=== PATIENT | male | born 1960 | race Caucasian/White ===

== ENCOUNTER 2016-12-31 03:30 | Emergency (ER) | payer OTHER, MEDICARE ==
[~2016-12-31] VITALS: Ht 167.6 cm; Wt 66.2 kg
[~2016-12-31 03:30] MED LIST: ARIP20TA16 PO; ATA25 PO; BENZ2TAB27 PO; CEPH250C16 PO; CLON1TAB PO; DIT5 PO; DOCU100C14 PO; ESCI10TA PO; IBUP-2213 PO; KEP500 PO; METO-460 PO; OLAN10TA PO; PANT40EC PO; PROP10TA28 PO; QUET100T PO; RANI-287 PO
[2016-12-31 03:40] VITALS: BP 144/92
--- NOTE | 2016-12-31 03:44 | NUR ---
PT TAKEN TO BED 3
--- NOTE | 2016-12-31 03:44 | NUR ---
56 Y/O M BIB FRONT DESK W/C/O LACERATION TO UNDERKNEE CHIN S/P FALL X 30 MIN AGO. CAREGIVER DENIES ANY LOC. ER MD AT BEDSIDE.
--- NOTE | 2016-12-31 03:44 | NUR ---
Dr. Gilmore evaluating patient at bedside.
[2016-12-31 04:14] VITALS: BP 144/92
--- NOTE | 2016-12-31 04:14 | NUR ---
Patient discharged with v/s stable. Written and verbal after care instructions given and explained TO CAREGIVER AND PT. CAREGIVER VERBALIZED UNDERSTANDED INSTRUCTIONS. Ambulatory with steady gait. All questions addressed prior to discharge. Advised to follow up with PMD OR RETURN TO ER IF CONDITION WORSENS.
== END 2016-12-31 04:14 | disposition home or self-care (01) ==
LOC: MED 03:30
DX: S01.81XA Laceration without foreign body of other part of head, initial encounter (principal); J45.909 Unspecified asthma, uncomplicated; W06.XXXA Fall from bed, initial encounter; Y93.89 Activity, other specified; Y92.89 Other specified places as the place of occurrence of the external cause; Y99.8 Other external cause status
CPT/HCPCS: 90471; 90715; 99283

== ENCOUNTER 2017-09-02 11:54 | Inpatient (IN) | payer OTHER, MEDICARE ==
[~2017-09-02] VITALS: Ht 165.1 cm; Wt 68.9 kg
[~2017-09-02 11:54] MED LIST changes: +ARIP20TA1 PO; -ARIP20TA16 PO; -DOCU100C14 PO; +[UNRECOGNIZED DRUG - CODE] PO
[2017-09-02 12:03] VITALS: BP 117/74
--- NOTE | 2017-09-02 12:04 | NUR ---
PT TAKEN TO BED 1.
--- NOTE | 2017-09-02 12:29 | NUR ---
PATIENT PRESENTS TO ED WITH ALOC. PT CAREGIVER STATES PATIENT HAD ADJUSTMENT OF SEIZURE MEDICATIONS AT THIS START OF THE MONTH AND PT BECAME INCREASINGLY ALTERED FROM BASELINE. HX, NONVERBAL, AUTISM. DENIES N/V/D; SKIN IS PINK/WARM/DRY; AAOX4 WITH EVEN AND STEADY GAIT; LUNGS CLEAR BL; HR EVEN AND REGULAR; PT DENIES ANY FEVER, CP, SOB, OR COUGH AT THIS TIME; VSS; PATIENT POSITIONED FOR COMFORT; HOB ELEVATED; BEDRAILS UP X2; BED DOWN. ER MD MADE AWARE OF PT STATUS.
--- NOTE | 2017-09-02 12:37 | NUR ---
Pt moved to bed 4.
[2017-09-02 13:02] LABS: HEMATOCRIT 44.7 % (36-52); HEMOGLOBIN 14.9 g/dL (12.0-18.0); MEAN CORPUSCULAR HEMOGLOBIN 31 pg (27-31); MEAN CORPUSCULAR HGB CONC 34 g/dL (33-37); MEAN CORPUSCULAR VOLUME 92 fL (80-94); PLATELET COUNT (AUTO) 190 K/uL (140-450); RED BLOOD CELL COUNT(AUTO) 4.85 MIL/uL (4.20-6.10); RED CELL DISTRIBUTION WIDTH 13.1 % (11.6-13.7); WHITE BLOOD COUNT (AUTO) 12.1 K/uL (4.8-10.8)
[2017-09-02 13:14] LABS: PROTHROMBIN TIME 11.8 secs (10.8-13.4)
[2017-09-02 13:15] LABS: ANION GAP 12.4 (8-16); CARBON DIOXIDE 30.5 mmol/L (21-32); CREATININE 1.3 mg/dL (0.7-1.3); POTASSIUM 3.9 mmol/L (3.5-5.1)
[2017-09-02 13:22] LABS: ALBUMIN 3.5 g/dL (3.4-5.0); TOTAL BILIRUBIN 0.5 mg/dL (0.0-1.0)
[2017-09-02 13:33] LABS: LYMPHOCYTES % (MANUAL) 14 % (20-46); MONOCYTES % (MANUAL) 5 % (5-12)
[2017-09-02] MEDS: NACL 0.9% 1,000 ML IV SCH ×2 (13:52→22:40)
[2017-09-02] MEDS ORDERED: ONDANSETRON 4 MG/2 ML VIAL IM/IVP PRN (13:55)
[2017-09-02] MEDS ORDERED: DOCUSATE SODIUM 100 MG GELCAP PO PRN ×2 (13:55→14:00)
[2017-09-02] MEDS ORDERED: MORPHINE SULFATE 2 MG/ML SYR IVP PRN (13:55)
[2017-09-02] MEDS ORDERED: ACETAMINOPHEN 325 MG TAB PO PRN (13:55)
[2017-09-02] MEDS ORDERED: HYDROcodone/APAP 7.5/325 MG 1 TAB PO PRN (13:55)
[2017-09-02] MEDS ORDERED: clonazePAM 0.5 MG TAB PO PRN (14:00)
[2017-09-02] MEDS ORDERED: IBUPROFEN 600 MG TAB PO PRN (14:00)
--- NOTE | 2017-09-02 14:15 | NUR ---
Pt report given to YANIQUE RN AT PT BEDSIDE. Transfer of care at this time.
[2017-09-02] MEDS ORDERED: ALBUTEROL SULFATE/IPRATROPIU 3 ML SOL IH PRN (14:35)
--- NOTE | 2017-09-02 14:50 | NUR ---
PATIENT TRANSFERRED TO [facility].
--- NOTE | 2017-09-02 15:00 | NUR ---
1455 RECEIVED A CALL FROM ITZ AT [facility] [phone] X [phone] AND FAX [phone] AND SHE REQUESTED THAT ANY CLINICAL DOCUMENTATION AVAILABLE BE FAXED TO HER. INFORMED HER THAT PT HAD JUST BEEN ADMITTED FROM ED AND THAT RESIDENT DOCTOR ASSIGNED COULD BE CONTACTED FOR FURTHER UPDATE AND PROVIDED HER WITH RESIDENT DOCTORS PHONE NUMBER.
--- NOTE | 2017-09-02 15:10 | NUR ---
PT ARRIVED ON UNIT VIA GURNEY. PT AWAKE BUT APHASIC. TRACKS WITH EYES. NO ACUTE DISTRESS NOTED. NO FACIAL GRIMACING NOTED. FLACC 0. PATIENT WALKED FROM [facility] TO BED WITH ASSISTANCE X 2. ABLE TO WALK BUT GAIT UNSTEADY. DOES NOT FOLLOW COMMANDS WELL. REQUIRES GUIDED ASSISTANCE. PT WITH IV TO RIGHT AC 20G HEP LOCKED. SEIZURE AND FALL PRECAUTIONS IMPLEMENTED. URINE AND MRSA SPECIMEN COLLECTED AND SENT TO LAB. PATIENT ORIENTED TO ROOM AND FLOOR. PLAN OF CARE REVIEWED. CALL PLAZA WITHIN REACH. SIDE RAILS UP. BED LOCKED. BED IN LOW POSITION. WILL CONT TO MONITOR.
[2017-09-02 15:15] VITALS: BP 128/89
[2017-09-02 16:01] LABS: APPEARANCE,URINE CLEAR (CLEAR); BILIRUBIN,URINE NEGATIVE (NEGATIVE); BLOOD, URINE NEGATIVE (NEGATIVE); COLOR,URINE YELLOW (YELLOW); LEUKOCYTE ESTERASE ,URINE NEGATIVE (NEGATIVE); NITRITE, URINE NEGATIVE (NEGATIVE); UGLUCOSE NEGATIVE (NEGATIVE)
--- NOTE | 2017-09-02 16:05 | NUR ---
PATIENT OUT OF ROOM AT THIS TIME IN RADIOLOGY DISPENSING OPTICIAN APPRENTICE TO ATTEMPT ASSESSMENT AND INCENTIVE SPIROMETRY THERAPY AT A LATER TIME
[2017-09-02 16:11] LABS: BARBITURATE, URINE POS. ng/ml (NEG <=200); BENZODIAZEPINE, URINE NEG. ng/mL (NEG <=200); CANNABINOID, URINE NEG. ng/mL (NEG <=50); COCAINE, URINE NEG. ng/mL (NEG <=300); OPIATE, URINE NEG. ng/mL (NEG <=2000); PHENCYCLIDINE SCREEN,URINE NEG. ng/mL (NEG <=25)
[2017-09-02 16:23] LABS: CHOL/HDL RATIO 2.4 (1-4.5); FREE T4 (FREE THYROXINE) 0.65 ng/dL (0.76-1.46); PHOSPHORUS 3.2 mg/dL (2.5-4.9); THYROID STIMULATING HORMONE 0.93 uIU/mL (0.34-3.74)
[2017-09-02] MEDS: METOCLOPRAMIDE 10 MG TAB PO SCH (16:39)
[2017-09-02] MEDS: LACTOBACILLUS RHAMNOSUS GG 1 EACH CAP PO SCH (16:40)
[2017-09-02] MEDS: hydrOXYzine HCL 25 MG TAB PO SCH (16:40)
--- NOTE | 2017-09-02 17:02 | NUR ---
PT REPEATEDLY ATTEMPTS TO GET UP OUT OF BED, PT SLIGHTLY UNSTEADY ON HIS FEET, WALKS AROUND THE ROOM WITH ASSIST, CHARGE NURSE NOTIFIED OF NEED FOR 1:1 SITTER FOR SAFETY.
--- NOTE | 2017-09-02 17:10 | NUR ---
PATIENT UNABLE TO PERFORM INCENTIVE SPIROMETRY THERAPY DOES NOT FOLLOW COMMANDS HX: AUTISM
--- NOTE | 2017-09-02 17:20 | NUR ---
DR GARCIA AT BEDSIDE FOR EVAL.
[2017-09-02] MEDS: PIPER/TAZO 2.25GM/D5W PREMIX 50 ML IV SCH (18:05)
[2017-09-02] MEDS: ALBUTEROL SULFATE/IPRATROPIU 3 ML SOL IH SCH (19:00)
--- NOTE | 2017-09-02 19:20 | NUR ---
GAVE REPORT TO SOCIOLOGY TEACHER NURSE FOR CONTINUITY OF CARE.
--- NOTE | 2017-09-02 19:21 | NUR ---
PATIENT REPORT RECEIVED FROM MORNING NURSE AT BEDSIDE. PATIENT IS RESTING COMFORTABLY IN BED, BUT EASILY AROUSABLE. NO SIGNS AND SYMPTOMS OF DISTRESS NOTED. BREATHING EVEN AND UNLABORED. PATIENT IS APHASIC. IV SITE NOTED ON RIGHT FOREARM. IVF INFUSING WELL. BED IN LOWEST POSITION, SIDE RAILS UP, SAFETY AND SEIZURE PRECAUTIONS IN PLACE. WILL CONTINUE TO MONITOR. 1:1 SITTER PRESENT AT BEDSIDE.
[2017-09-02 20:00] VITALS: BP 112/79
[2017-09-02] MEDS ORDERED: OLANZapine 5 MG TAB PO SCH (21:00)
[2017-09-02] MEDS ORDERED: NON-FORMULARY ITEM (Ranitidine Hcl* (Zantac*) 150 MG) PO SCH (21:00)
[2017-09-02] MEDS ORDERED: ARIPiprazole 10 MG TAB PO SCH (21:00)
[2017-09-02] MEDS ORDERED: levETIRAcetam 500 MG TAB PO SCH ×2 (21:00)
[2017-09-02] MEDS ORDERED: QUEtiapine FUMARATE 100 MG TAB PO SCH (21:00)
[2017-09-02] MEDS: PROPRANOLOL 20 MG TAB PO SCH (21:01)
[2017-09-02] MEDS: lamoTRIgine 25 MG TAB PO SCH (21:02)
[2017-09-02] MEDS: BENZTROPINE 1 MG TAB PO SCH (21:03)
--- NOTE | 2017-09-02 21:30 | NUR ---
EDUCATION ON MEDICATIONS GIVEN. PATIENT APHASIC. ADMINISTERED ALL MEDICATIONS ORDERED. PATIENT TOLERATED WELL. WILL CONTINUE TO MONITOR.
[2017-09-03] VITALS: BP 115/83
--- NOTE | 2017-09-03 | NUR ---
CHECKED ON PATIENT PATIENT IS ASLEEP. NO SIGNS AND SYMPTOMS OF DISTRESS NOTED. BREATHING EVEN AND UNLABORED. BED IN LOWEST POSITION, SIDE RAILS UP AND CALL LIGHT WITHIN REACH. WILL CONTINUE TO MONITOR.
[2017-09-03] MEDS: PIPER/TAZO 2.25GM/D5W PREMIX 50 ML IV SCH ×3 (00:21→11:24)
--- NOTE | 2017-09-03 02:30 | NUR ---
ASSISTED PATIENT TO THE RESTROOM. PATIENT VOIDED. ESCORTED PATIENT BACK TO BED. 1:1 SITTER STILL PRESENT IN ROOM. WILL CONTINUE TO MONITOR.
[2017-09-03 04:00] VITALS: BP 128/85
[2017-09-03] MEDS ORDERED: PANTOPRAZOLE 40 MG TABEC PO SCH (06:30)
[2017-09-03] MEDS: METOCLOPRAMIDE 10 MG TAB PO SCH ×2 (06:40→11:24)
[2017-09-03] MEDS: NACL 0.9% 1,000 ML IV SCH ×2 (06:44→14:34)
[2017-09-03] MEDS: ALBUTEROL SULFATE/IPRATROPIU 3 ML SOL IH SCH ×2 (06:49→13:14)
[2017-09-03] MEDS ORDERED: BISACODYL 10 MG SUPP RC SCH (07:00)
--- NOTE | 2017-09-03 07:25 | NUR ---
PATIENT REPORT GIVEN TO MORNING NURSE AT BEDSIDE. PATIENT IS IN STABLE CONDITION
--- NOTE | 2017-09-03 07:26 | NUR ---
ENDORSEMENT RECEIVED FROM MOLECULAR BIOLOGY SCIENTIST NURSE. PATIENT IS SLEEPING COMFORTABLY. RESPIRATION EVEN, UNLABOR. SKIN DRY AND WARM. FLACC 0. NO DISTRESS NOTED AT THIS TIME. IV PATENT AND INTACT. BED AT LOW POSITION. FALL PRECAUTION IS APPLIED WITH 1:1 SITTER. CALL LIGHT WITHIN REACH
[2017-09-03 08:00] VITALS: BP 114/73
[2017-09-03] MEDS ORDERED: OXYBUTYNIN 5 MG TAB PO SCH (09:00)
[2017-09-03] MEDS ORDERED: levETIRAcetam 500 MG TAB PO SCH (09:00)
[2017-09-03] MEDS ORDERED: ESCITALOPRAM 20 MG TAB PO SCH (09:00)
[2017-09-03 09:11] LABS: LACTATE DEHYDROGENASE 198 IU/L (121-224)
--- NOTE | 2017-09-03 09:12 | NUR ---
PATIENT HAS BEEN SCREENED AND CATEGORIZED MODERATE NUTRITION RISK. PATIENT WILL BE SEEN WITHIN 3-5 DAYS OF ADMISSION. 09/04/17-09/06/[address]
[2017-09-03] MEDS: BENZTROPINE 1 MG TAB PO SCH (09:14)
[2017-09-03] MEDS: LACTOBACILLUS RHAMNOSUS GG 1 EACH CAP PO SCH (09:15)
[2017-09-03] MEDS: PROPRANOLOL 20 MG TAB PO SCH (09:16)
[2017-09-03] MEDS: lamoTRIgine 25 MG TAB PO SCH (09:16)
[2017-09-03] MEDS: hydrOXYzine HCL 25 MG TAB PO SCH ×2 (09:17→13:35)
[2017-09-03 10:03] LABS: BASOPHILS # (AUTO) 0.2 K/uL (0.00-0.22); EOSINOPHILS # (AUTO) 0.1 K/uL (0-0.4); EOSINOPHILS % (AUTO) 1.1 % (0.0-4.0); HEMATOCRIT 49.5 % (36-52); HEMOGLOBIN 16.2 g/dL (12.0-18.0); LYMPHOCYTES # (AUTO) 1.6 K/uL (2.0-11.5); LYMPHOCYTES % (AUTO) 19.1 % (20.5-51.1); MEAN CORPUSCULAR HEMOGLOBIN 31 pg (27-31); MEAN CORPUSCULAR HGB CONC 33 g/dL (33-37); MEAN CORPUSCULAR VOLUME 94 fL (80-94); MONOCYTES # (AUTO) 0.7 K/uL (0.8-1.0); MONOCYTES % (AUTO) 8.7 % (1.7-9.3); NEUTROPHILS # (AUTO) 5.6 K/uL (1.8-7.7); NEUTROPHILS % (AUTO) 68.1 % (42.2-75.2); PLATELET COUNT (AUTO) 208 K/uL (140-450); RED BLOOD CELL COUNT(AUTO) 5.27 MIL/uL (4.20-6.10); WHITE BLOOD COUNT (AUTO) 8.2 K/uL (4.8-10.8)
[2017-09-03 10:18] LABS: ANION GAP 11.4 (8-16); CARBON DIOXIDE 29.8 mmol/L (21-32); POTASSIUM 4.2 mmol/L (3.5-5.1)
--- NOTE | 2017-09-03 10:28 | NUR ---
PATIENT TRIED TO GET OUT OF BED ON HIS OWN, PULLED OUT HIS ID BAND, AND TRIED TO PULL OUT HIS IV LINE. MITTENS WERE APPLIED ON BOTH HAND. WILL CONTINUE TO MONITOR.
--- NOTE | 2017-09-03 11:00 | NUR ---
I contacted Patient's board and care administrative care provider Maryana Jamil to discuss, confirm and coordinate for patient's discharge. Per Mrs. Jamil Patient is receiving [facility], with Baggage Checker Jayesh Prasad [phone]. Mrs. Jamil Stated that patient has been under their care for about 15 years. Patient has no Advance directive and person to notify and can make decisions for patient's is his mother Patricia Jones even thought [facility] still involved and provides him with services. Per Mrs. Jamil Patient has no issues getting his medications and is in compliance with his treatment, has Dr. Amari Jacob as his health care provider. Patient has no special equipment at home and no need for O2. Patient can return back to facility when stable and ready for discharge. I thank Mrs. Jamil for her information and discuss patient's possible D/C today. She agreed and stated able to coordinate his discharge but unable to berry picker patient until after 15:00. However; Mrs. Jamil also stated that patient's mother was in her way to see patient and she can coordinate with his mother Mrs. Patricia Jones and have her berry picker patient and transport him back to the board and care facility since, she is coming already to [facility]. Mrs. Jamil stated that she will be contacting Mrs. Patricia Jones, talk to her and will be calling me back with patient berry picker time. I agreed and ended call. Custom Motorcycle Painter and Dog Day Care Attendant will follow up as needed.
[2017-09-03] MEDS ORDERED: LORazepam 2 MG/ML VIAL IVP PRN (11:45)
--- NOTE | 2017-09-03 12:56 | NUR ---
PATIENT AWAKE, CONFUSED, TRIED TO GET OUT OF BED, AND PULLED OUT THE MITTEN. ACCREDITATION COORDINATOR IS AT BEDSIDE TRANSFERRING PATIENT. MED WAS GIVEN PER ORDER.
--- NOTE | 2017-09-03 13:00 | NUR ---
[facility] Director Of Residential Services Maiaamayaumlu Prasad [phone]. Call me introducing her self and asking for Patient information and current status. I discuss, Confirmed and informed Mrs. Prasad about patient's status and discharge today from [facility]. She agreed and stated that patient can be returned to same board and care facility. She also stated that even when [facility] is involved and providing services to patient; His mother Patricia Jones is able to make decisions for patient. Mrs. Prasad thank me for information and ended call.
--- NOTE | 2017-09-03 14:40 | NUR ---
Due to Patient's Mother Patricia Jones stating to MD that she is unable to take patient at discharge and transport him to board and care Facility. I attempted to contact Patient's board and care administrative care provider Maryana Jamil to coordinate patient's discharge and picker / packer time. No respond 3x, I was unable to leave a voicemail MGS due to not been set up yet. A follow up call will be done later today if no call back from Dayanna Omero within couple hours.
[2017-09-03] MEDS ORDERED: LACT1.4C PO (14:49)
[2017-09-03] MEDS ORDERED: LEVO750T2 PO (14:49)
[2017-09-03] MEDS ORDERED: METR250T2 PO (14:49)
[2017-09-03] MEDS ORDERED: LAM25 PO (14:51)
[2017-09-03] MEDS ORDERED: KEP500 PO ×2 (14:51)
--- NOTE | 2017-09-03 15:00 | NUR ---
PATIENT GOT OUT OF BED TO GO INTO THE SHOWER ROOM, WANTED TO SHOWER. SPONGE BATH WAS GIVEN. PATIENT WAS ASSISTED BACK TO BED
--- NOTE | 2017-09-03 15:30 | NUR ---
CM NOTE INITIAL REVIEW FAXED TO [facility] (FAX# [phone], ATTN: ITZ [phone]) AND [facility] (FAX# [phone], C: [phone])
--- NOTE | 2017-09-03 16:09 | NUR ---
DISCHARGE INSTRUCTION WAS GIVEN TO PATIENT'S MOTHER. SHE VERBALIZED UNDERSTANDING. IV WAS REMOVED, CATHETER INTACT, NO ACTIVE BLEEDING SEEN, PATIENT TOLERATED WELL. ID BAND WAS REMOVED. ALL BELONGING WAS TAKEN WITH THE TRANSPORTER AND FAMILY. PATIENT WAS ESCORTED OUT IN WHEELCHAIR WITH FAMILY AND TRANSPORTER. PATIENT IS STABLE AT THIS TIME
[2017-09-03] MEDS ORDERED: FAMOTIDINE 20 MG TAB PO SCH (21:00)
[2017-09-05 08:17] LABS: LD1 FRACTION 23 % (17-32); LD2 FRACTION 32 % (25-40); LD3 FRACTION 25 % (17-27); LD4 FRACTION 11 % (5-13); LD5 FRACTION 9 % (4-20)
== END 2017-09-03 16:10 | disposition home or self-care (01) | DRG 177 ==
LOC: MED 11:54 → MTU 13:52
PROVIDERS: ADMIT Family Medicine; ATTEND Family Medicine
DX: J69.0 Pneumonitis due to inhalation of food and vomit (principal); G93.41 Metabolic encephalopathy; J96.01 Acute respiratory failure with hypoxia; E86.0 Dehydration; M48.54XS Collapsed vertebra, not elsewhere classified, thoracic region, sequela of fracture; D64.9 Anemia, unspecified; F84.0 Autistic disorder; J98.11 Atelectasis; F41.9 Anxiety disorder, unspecified; K21.9 Gastro-esophageal reflux disease without esophagitis; R32 Unspecified urinary incontinence; Z79.899 Other long term (current) drug therapy; G40.909 Epilepsy, unspecified, not intractable, without status epilepticus; I10 Essential (primary) hypertension; K59.00 Constipation, unspecified; M47.9 Spondylosis, unspecified; K76.89 Other specified diseases of liver
CPT/HCPCS: 36415; 36600; 70450; 71045; 71250; 80048; 80053; 80305; 81003; 82140; 82150; 82803; 83036; 83605; 83625; 83690; 83735; 83880; 84100; 84436; 84439; 84443; 84479; 84484; 85025; 85610; 85730; 87040; 87081; 87086; 93005; 93880; 94640; 97140; 99285; J2060; J2543; J7030; J7620; J8597; Q0092

== ENCOUNTER 2019-02-09 09:39 | Emergency (ER) | payer OTHER, BC ==
[~2019-02-09] VITALS: Ht 162.6 cm; Wt 65.5 kg
[~2019-02-09 09:39] MED LIST changes: -CEPH250C16 PO; +LACT1.4C PO; +LAM25 PO; +LEVO750T2 PO; +METR250T2 PO
[2019-02-09 09:50] VITALS: BP 123/73
--- NOTE | 2019-02-09 09:57 | NUR ---
Patient ambulated to bed 8 with caregiver. RN evaluating patient at bedside.
--- NOTE | 2019-02-09 10:08 | NUR ---
Dr. Corrales evaluating patient at bedside.
--- NOTE | 2019-02-09 10:10 | NUR ---
C/O LACERATION TO CHIN X 1 HOUR. RESEARCH AND DEVELOPMENT SCIENTIST STATES PT TRIPPED WALKING UP STAIRS TO PATIO AND HIT CHIN ON CONCRETE. 2.5 CM LACERATION TO CHIN, BLEEDING CONTROLLED WITH BANDAID. DENIES LOC OR N/V. PT NON-VERBAL. RESEARCH AND DEVELOPMENT SCIENTIST AT THE BEDSIDE. PT HAS HX OF AUTISM. PT ABLE YO USE RESTOOM AND INDEPENDENT WITH ADLS. DENIES ANY DIZINESS. APPLIED BAND AID AT THE SITE. TO SEE THE PT. MEDHX:AUTISTIC
[2019-02-09] MEDS ORDERED: LIDOCAINE 1% 500 MG/50 ML VIAL INJ ONE (10:25)
[2019-02-09] MEDS ORDERED: CLINDAMYCIN 150 MG CAP PO ONE (10:25)
[2019-02-09] MEDS ORDERED: NEOMYCIN/POLYMYXIN/BACITRACIN 0.9 GM/1 PKT TP ONE (10:25)
[2019-02-09] MEDS ORDERED: LIDOCAINE MPF 1% 5mL VIAL INJ ONE (10:40)
[2019-02-09] MEDS ORDERED: LIDOCAINE MPF 1% - 5 mL VIAL 5 ML ONE (10:47)
--- NOTE | 2019-02-09 12:08 | NUR ---
Dr. Corrales at bedside for laceration repair.
[2019-02-09 12:44] VITALS: BP 120/70
--- NOTE | 2019-02-09 12:44 | NUR ---
Patient discharged with v/s stable. Written and verbal after care instructions given and explained to caregiver. Caregiver verbalized understanding. Ambulatory with steady gait. All questions addressed prior to discharge. Advised to follow up with PMD.
== END 2019-02-09 12:43 | disposition home or self-care (01) ==
LOC: MED 09:39
DX: S01.81XA Laceration without foreign body of other part of head, initial encounter (principal); F84.0 Autistic disorder; Z79.2 Long term (current) use of antibiotics; Z79.899 Other long term (current) drug therapy; Z86.69 Personal history of other diseases of the nervous system and sense organs; W10.8XXA Fall (on) (from) other stairs and steps, initial encounter; Y93.89 Activity, other specified; Y92.89 Other specified places as the place of occurrence of the external cause; Y99.8 Other external cause status
CPT/HCPCS: 12011; 90471; 90715; 99283; J2001

== ENCOUNTER 2019-02-19 09:40 | Emergency (ER) | payer OTHER, BC ==
[~2019-02-19] VITALS: Ht 162.6 cm; Wt 65.3 kg
[2019-02-19 09:53] VITALS: BP 112/80
--- NOTE | 2019-02-19 09:57 | NUR ---
PT AMB TO BED 6 WITH STEADY GAIT
--- NOTE | 2019-02-19 10:15 | NUR ---
pt bib caregiver for suture removal to chin, 1 suture noted, wound appears to have healed well, no bleeding, d/c, redness, or pain. pt sitting in bed, awake and calm, caregiver at bedside. hx autistic, non verbal, seizures.
--- NOTE | 2019-02-19 10:35 | NUR ---
Patient discharged with v/s stable. Written and verbal after care instructions given and explained. Patient verbalized understanding. Ambulatory with steady gait, w/caregiver. All questions addressed prior to discharge. Advised to follow up with PMD.
[2019-02-19 10:36] VITALS: BP 112/80
== END 2019-02-19 10:35 | disposition home or self-care (01) ==
LOC: MED 09:40
DX: S01.81XD Laceration without foreign body of other part of head, subsequent encounter (principal); F84.0 Autistic disorder; Z79.899 Other long term (current) drug therapy; X58.XXXD Exposure to other specified factors, subsequent encounter
CPT/HCPCS: 99281

== ENCOUNTER 2019-05-16 17:31 | Inpatient (IN) | payer OTHER, BC ==
[~2019-05-16] VITALS: Ht 170.2 cm; Wt 68.0 kg
--- NOTE | 2019-05-16 00:50 | NUR ---
PT'S INFO LIMITED DUE TO PT'S CONDITION, SKIN ASSESSMENT DONE; INTACT. Addendum: 05/17/19 at 8588 by Yanique Mcnair RN DELETE NOTE WRONG DATE
[2019-05-16 17:44] VITALS: BP 121/84
--- NOTE | 2019-05-16 17:53 | NUR ---
PT BIBA C/O GENERAL WEAKNESS X2 DAYS, ALONG WITH LOWER BACK PAIN AND FREQUENT URINATION. PER PLASTERER SPRAY GUN PT IS USUALLY ABLE TO WALK, BUT IS UNABLE TO WALK AT THIS TIME, HURT HIS BACK YESTERDAY WHEN HE FELL DURING A "TEMPET TANTRUM". PT NON VERBAL. VSS. ER TO SEE PT. MEDHX:MR, AUTISM, SEIZURE
[2019-05-16] MEDS ORDERED: NACL 0.9% 1,000 ML IV ONE (17:55)
[2019-05-16 18:39] LABS: BASOPHILS % (AUTO) 0.3 % (0.0-2.0); EOSINOPHILS # (AUTO) 0.2 K/uL (0-0.4); EOSINOPHILS % (AUTO) 3.7 % (0.0-4.0); HEMATOCRIT 40.2 % (36-52); HEMOGLOBIN 13.4 g/dL (12.0-18.0); LYMPHOCYTES # (AUTO) 2.4 K/uL (2.0-11.5); MEAN CORPUSCULAR HEMOGLOBIN 32 pg (27-31); MEAN CORPUSCULAR HGB CONC 33 g/dL (33-37); MEAN CORPUSCULAR VOLUME 95.9 fL (80-94); MONOCYTES % (AUTO) 15.5 % (1.7-9.3); NEUTROPHILS % (AUTO) 44.5 % (42.2-75.2); PLATELET COUNT (AUTO) 166 K/uL (140-450); RED BLOOD CELL COUNT(AUTO) 4.19 MIL/uL (4.20-6.10); RED CELL DISTRIBUTION WIDTH 13.3 % (11.6-13.7); WHITE BLOOD COUNT (AUTO) 6.7 K/uL (4.8-10.8)
[2019-05-16] MEDS ORDERED: IBUP-2213 PO (18:39)
[2019-05-16] MEDS ORDERED: IMO2 PO (18:39)
[2019-05-16] MEDS ORDERED: DIVA500T1 PO (18:39)
[2019-05-16] MEDS ORDERED: ATRO1TAB PO (18:39)
[2019-05-16] MEDS ORDERED: [UNRECOGNIZED DRUG - CODE] (18:39)
[2019-05-16] MEDS ORDERED: LORA-476 PO (18:39)
[2019-05-16 19:10] LABS: ANION GAP 11.5 (8-16); CARBON DIOXIDE 28.3 mmol/L (21-32); CREATININE 0.8 mg/dL (0.7-1.3); POTASSIUM 3.8 mmol/L (3.5-5.1); TOTAL BILIRUBIN 0.4 mg/dL (0.0-1.0)
--- NOTE | 2019-05-16 19:10 | NUR ---
CHARBEL REPORT TO INES NIETO
[2019-05-16 19:11] LABS: ALBUMIN 2.9 g/dL (3.4-5.0)
--- NOTE | 2019-05-16 19:11 | NUR ---
REPORT RECEIVED FROM EMILIA BASURTO. ASSUMED CARE AT THIS TIME. PT IN STABLE CONDITON. CARETAKERS AT BEDSIDE.
[2019-05-16 19:12] LABS: APPEARANCE,URINE CLEAR (CLEAR); BILIRUBIN,URINE NEGATIVE (NEGATIVE); BLOOD, URINE NEGATIVE (NEGATIVE); COLOR,URINE YELLOW (YELLOW); LEUKOCYTE ESTERASE ,URINE NEGATIVE (NEGATIVE); NITRITE, URINE NEGATIVE (NEGATIVE); UGLUCOSE NEGATIVE (NEGATIVE)
--- NOTE | 2019-05-16 19:29 | NUR ---
DR. RODRIGUEZ BEDSIDE EVALUATING PT
[2019-05-16] MEDS ORDERED: LEVOFLOXACIN 750 MG/D5W PREMIX 150 ML IV ONE (19:35)
--- NOTE | 2019-05-16 20:00 | NUR ---
PT PROVIDED WITH URINAL. CAREGIVER AT BEDSIDE TO ASSIST.
--- NOTE | 2019-05-16 20:10 | NUR ---
SPOKE WITH SULAIMAN, CAMPUS AIDE AT [facility] TO PROVIDE PT INFORMATION FOR ROOM ASSIGNMENT.
--- NOTE | 2019-05-16 21:00 | NUR ---
CHARU DASILVA, MOTHER, . ELOY LUCERO, [phone]. [phone], DR. LORD, PCP.
--- NOTE | 2019-05-16 21:15 | NUR ---
PT CAREGIVER SIGNED REFUSAL FOR TRANSFER DOCUMENTATION.
--- NOTE | 2019-05-16 22:25 | NUR ---
PT ASLEEP. VISIBLE CHEST RISE AND FALL NOTED. VSS AT THIS TIME. CAREGIVER AT BEDSIDE. WILL CONTINUE TO MONITOR.
--- NOTE | 2019-05-16 22:40 | NUR ---
Patient will be admitted to care of [facility]. Admited to [facility] [[email or web address] Will go to room 105B Belongings list completed. Report to EMILIA Mendes. Transfer of care at this time.
[2019-05-16] MEDS ORDERED: MORPHINE SULFATE 2 MG/ML SYR IVP PRN (23:10)
[2019-05-16] MEDS ORDERED: ONDANSETRON 4 MG/2 ML VIAL IM/IVP PRN (23:10)
[2019-05-16] MEDS ORDERED: HYDROcodone/APAP 7.5/325 MG 1 TAB PO PRN (23:10)
--- NOTE | 2019-05-16 23:40 | NUR ---
RECEIVED REPORT FROM ED, PT WHEELED TO UNIT VIA GURNEY, PT ABLE TO WALK TO THE COMFORT ROOM BY HIMSELF, W/ UNSTEADY GAIT, WITH STANDBY ASSIST.PT A, A O X 2 NON VERBAL W/ MENTAL RETARDATION AND AUTISM. ON FALL RISK PRECAUTION WITH IV ON THE LEFT FOREARM G 20, PATENT AND INTACT. WILL START ORDERS
[2019-05-16 23:45] LABS: BARBITURATE, URINE NEG. ng/ml (NEG <=200); BENZODIAZEPINE, URINE NEG. ng/mL (NEG <=200); CANNABINOID, URINE NEG. ng/mL (NEG <=50); COCAINE, URINE NEG. ng/mL (NEG <=300); OPIATE, URINE NEG. ng/mL (NEG <=2000); PHENCYCLIDINE SCREEN,URINE NEG. ng/mL (NEG <=25)
[2019-05-16 23:51] LABS: CHOL/HDL RATIO 2.7 (1-4.5); FREE T4 (FREE THYROXINE) 0.74 ng/dL (0.76-1.46); PHOSPHORUS 3.6 mg/dL (2.5-4.9); THYROID STIMULATING HORMONE 1.2 uIU/mL (0.34-3.74)
[2019-05-17 00:13] LABS: PROTHROMBIN TIME 10.3 secs (10.8-13.4)
[2019-05-17] MEDS: NACL 0.9% 1,000 ML IV SCH ×2 (00:36→15:07)
--- NOTE | 2019-05-17 00:50 | NUR ---
PT'S INFO LIMITED DUE TO PT'S CONDITION, SKIN ASSESSMENT DONE; INTACT.
--- NOTE | 2019-05-17 01:00 | NUR ---
FROM 105B PT WILL BE TRANSFERED TO ROOM 121A DUE TO PT'S GETTING UP, AND PT IS A FALL RISK, DIRECTOR SALES AND MARKETING AND SPONGE BUFFER'S AT BEDSIDE.
[2019-05-17] MEDS ORDERED: cefTRIAXone 1,000 MG VIAL ONE (01:06)
[2019-05-17] MEDS ORDERED: AZITHROMYCIN 500 MG INJ VIAL IV ONE (01:21)
[2019-05-17] MEDS: AZITHROMYCIN 250 MG in DEXTROSE 5% 250 ML IV SCH (02:00)
--- NOTE | 2019-05-17 02:15 | NUR ---
PT OFTEN GETTING UP ON BED, 3 AUXILIARY ENGINEER'S TRING TO STOP HIM HE WAS PULLING ON THE ID BANDS IN HIS WRIST, AND PULLING ON THE IV INADVERTENTLY WHEN GETTING UP
[2019-05-17 05:26] VITALS: BP 133/84
--- NOTE | 2019-05-17 07:01 | NUR ---
PT PULLED THE IVF TUBING IT SPLIT INTO 2, HIS IV SITE STILL INTACT WILL REPLACE IV TUBING AND THE IVF.
--- NOTE | 2019-05-17 07:10 | NUR ---
PT ON BED NOW, GAVE REPORT TO EMILIA ROMERO, PT IN STABLE CONDITION.
[2019-05-17 07:13] LABS: BASOPHILS % (AUTO) 0.3 % (0.0-2.0); EOSINOPHILS # (AUTO) 0.2 K/uL (0-0.4); EOSINOPHILS % (AUTO) 2.8 % (0.0-4.0); HEMATOCRIT 43.6 % (36-52); HEMOGLOBIN 14.5 g/dL (12.0-18.0); LYMPHOCYTES # (AUTO) 1.1 K/uL (2.0-11.5); LYMPHOCYTES % (AUTO) 14.9 % (20.5-51.1); MEAN CORPUSCULAR HEMOGLOBIN 32 pg (27-31); MEAN CORPUSCULAR HGB CONC 33 g/dL (33-37); MEAN CORPUSCULAR VOLUME 96.1 fL (80-94); MONOCYTES # (AUTO) 0.9 K/uL (0.8-1.0); MONOCYTES % (AUTO) 11.6 % (1.7-9.3); NEUTROPHILS # (AUTO) 5.3 K/uL (1.8-7.7); NEUTROPHILS % (AUTO) 70.4 % (42.2-75.2); PLATELET COUNT (AUTO) 176 K/uL (140-450); RED BLOOD CELL COUNT(AUTO) 4.54 MIL/uL (4.20-6.10); WHITE BLOOD COUNT (AUTO) 7.6 K/uL (4.8-10.8)
--- NOTE | 2019-05-17 07:27 | NUR ---
RECEIVED REPORT FROM FLIGHT DECK OFFICER NURSE. PATIENT LYING DOWN IN BED COMFORTABLY. NO DISTRESS NOTED. FLACC 0. AAOX1, APHASIC, SKIN COLOR APPROPRIATE TO ETHNICITY, WARM TO TOUCH. SKIN INTACT. RESPIRATIONS EVEN, UNLABORED, ON ROOM AIR. IV SITE INTACT, PATENT, AND INFUSING IVF PER MD ORDERS. ABDOMEN SOFT. REVIEWED PLAN OF CARE WITH PATIENT. UNABLE TO COMPREHEND. SAFETY MEASURES IN PLACE, CALL LIGHT WITHIN REACH. WILL CONTINUE TO MONITOR.
[2019-05-17 07:33] LABS: ANION GAP 10.7 (8-16); CARBON DIOXIDE 30.6 mmol/L (21-32); CREATININE 0.8 mg/dL (0.7-1.3); POTASSIUM 4.3 mmol/L (3.5-5.1)
[2019-05-17 08:00] VITALS: BP 126/86
[2019-05-17] MEDS ORDERED: OXYBUTYNIN 5 MG TAB PO SCH (09:00)
[2019-05-17] MEDS: OXYBUTYNIN 5 MG TAB PO SCH ×2 (09:26→21:42)
[2019-05-17] MEDS: LACTOBACILLUS RHAMNOSUS GG 1 EACH CAP PO SCH (09:26)
[2019-05-17] MEDS: levETIRAcetam 500 MG TAB PO SCH ×2 (09:27→21:43)
[2019-05-17] MEDS: ESCITALOPRAM 20 MG TAB PO SCH (09:27)
[2019-05-17] MEDS: BENZTROPINE 1 MG TAB PO SCH ×2 (09:27→21:42)
[2019-05-17] MEDS: DIVALPROEX 500 MG TABER PO SCH ×2 (09:27→21:42)
[2019-05-17] MEDS: PANTOPRAZOLE 40 MG TABEC PO SCH (09:29)
--- NOTE | 2019-05-17 09:31 | NUR ---
PATIENT SITTING IN BED, AMBULATED TO BATHROOM WITH STEADY GAIT. STAFF MEMBER FROM [facility] AT BEDSIDE. SCHEDULED MEDICATIONS DUE GIVEN. WILL CONTINUE TO MONITOR.
--- NOTE | 2019-05-17 10:30 | NUR ---
CAREGIVER FROM [facility] AT BEDSIDE. NO DISTRESS NOTED. CONDITION UNCHANGED. WILL CONTINUE TO MONITOR.
--- NOTE | 2019-05-17 12:11 | NUR ---
PATIENT HAS BEEN SCREENED AND CATEGORIZED MODERATE NUTRITION RISK. PATIENT WILL BE SEEN WITHIN 3-5 DAYS OF ADMISSION. 05/19/19 05/21/[address]
--- NOTE | 2019-05-17 12:22 | NUR ---
SW attempted to contact [facility] [phone] and patient's emergency contact Sylvia Hilliard [phone]. Both phone numbers did not have voice mails set up. LOWELL was unable to leave a message. LOWELL will follow up as needed. Addendum: 05/18/19 at 1459 by Tristen Agarwal SW attempted to contact [facility] [phone], Sylvia Hilliard [phone], and mother Patricia Jones [phone]. All calls were not available to be reached. LOWELL/VISHNU will follow up.
--- NOTE | 2019-05-17 12:30 | NUR ---
PATIENT SITTING IN BED BEING FED BY JAVA INTEGRATION DEVELOPER. WILL CONTINUE TO MONITOR .
--- NOTE | 2019-05-17 14:30 | NUR ---
ASSISTED PATIENT TO BATHROOM AND BACK TO BED. WILL CONTINUE TO MONITOR.
[2019-05-17 16:00] VITALS: BP 129/89
--- NOTE | 2019-05-17 16:02 | NUR ---
PATIENT SITTING IN BED COMFORTABLY. CONDITION UNCHANGED. WILL CONTINUE TO MONITOR.
--- NOTE | 2019-05-17 19:41 | NUR ---
GAVE REPORT TO TERMITE CONTROL REPRESENTATIVE NURSE FOR CONTINUITY OF CARE. PATIENT IN STABLE CONDITION.
--- NOTE | 2019-05-17 19:42 | NUR ---
RECEIVED BEDSIDE REPORT FROM AM SHIFT RNNICK. PT IS AOX1, MENTALLY DELAYED, NONVERBAL. PT IS AMBULATORY. NO SIGNS OF RESPIRATORY DISTRESS OR SOB NOTED. IV ACCESS ON LEFT FOREARM 22 GAUGE, PATENT, INTACT AND ASYMPTOMATIC. PT IS FALL RISK. BED IN LOW POSITION. PT ON SEIZURE PRECAUTION, SAFETY MEASURES IN PLACE. BOARD UPDATED. WILL CONTINUE TO MONITOR.
[2019-05-17] MEDS: QUEtiapine FUMARATE 100 MG TAB PO SCH (21:43)
--- NOTE | 2019-05-17 22:00 | NUR ---
ROUNDS DONE. PATIENT SLEEPING IN BED. NO DISTRESS NOTED. VISIBLE CHEST RISE AND FALL NOTED. WILL CONTINUE TO MONITOR.
[2019-05-18] VITALS: BP 131/89
--- NOTE | 2019-05-18 | NUR ---
VITAL SIGNS TAKEN. PT ASLEEP. NO SOB OR DISTRESS NOTED. WILL CONTINUE TO MONITOR PT.
[2019-05-18] MEDS: AZITHROMYCIN 250 MG in DEXTROSE 5% 250 ML IV SCH (01:22)
[2019-05-18] MEDS: NACL 0.9% 1,000 ML IV SCH ×3 (01:30→21:22)
--- NOTE | 2019-05-18 02:07 | NUR ---
ROUNDS DONE. PT IS SLEEPING COMFORTABLY IN BED. VISIBLE CHEST RISE AND FALL NOTED. WILL CONTINUE TO MONITOR.
--- NOTE | 2019-05-18 04:00 | NUR ---
ROUNDS MADE. PT STABLE VISIBLE CHEST RISE AND FALL NOTED. WILL CONTINUE TO MONITOR.
[2019-05-18 06:20] LABS: ANION GAP 10.1 (8-16); CARBON DIOXIDE 30.6 mmol/L (21-32); CREATININE 0.7 mg/dL (0.7-1.3); POTASSIUM 4.7 mmol/L (3.5-5.1)
[2019-05-18 06:21] LABS: BASOPHILS % (AUTO) 0.4 % (0.0-2.0); EOSINOPHILS # (AUTO) 0.1 K/uL (0-0.4); EOSINOPHILS % (AUTO) 1.9 % (0.0-4.0); HEMATOCRIT 41.5 % (36-52); HEMOGLOBIN 13.8 g/dL (12.0-18.0); LYMPHOCYTES # (AUTO) 1.9 K/uL (2.0-11.5); LYMPHOCYTES % (AUTO) 25.9 % (20.5-51.1); MEAN CORPUSCULAR HEMOGLOBIN 32 pg (27-31); MEAN CORPUSCULAR HGB CONC 33 g/dL (33-37); MEAN CORPUSCULAR VOLUME 96.4 fL (80-94); MONOCYTES # (AUTO) 1.1 K/uL (0.8-1.0); MONOCYTES % (AUTO) 14.9 % (1.7-9.3); NEUTROPHILS # (AUTO) 4.2 K/uL (1.8-7.7); NEUTROPHILS % (AUTO) 56.9 % (42.2-75.2); PLATELET COUNT (AUTO) 190 K/uL (140-450); RED BLOOD CELL COUNT(AUTO) 4.31 MIL/uL (4.20-6.10); RED CELL DISTRIBUTION WIDTH 12.9 % (11.6-13.7); WHITE BLOOD COUNT (AUTO) 7.4 K/uL (4.8-10.8)
[2019-05-18 06:38] LABS: MAGNESIUM 1.9 mg/dL (1.8-2.4); PHOSPHORUS 3.6 mg/dL (2.5-4.9)
[2019-05-18] MEDS: PANTOPRAZOLE 40 MG TABEC PO SCH (06:51)
--- NOTE | 2019-05-18 06:59 | NUR ---
PT IN STABLE CONDITION. WILL ENDORSE TO AM SHIFT NURSE FOR CONTINUITY OF CARE.
--- NOTE | 2019-05-18 07:25 | NUR ---
RECEIVED HAND OFF REPORT FROM PM RN PT APPEARS STABLE AND IN NO APPARENT DISTRESS. ALL SAFETY MEASURES ARE IN PLACE WILL CONTINUE TO MONITOR
[2019-05-18 08:20] VITALS: BP 152/90
--- NOTE | 2019-05-18 09:34 | NUR ---
FREQUENT ROUNDING ON PT PT APPEARS STABLE AND IN NO APPARENT DISTRESS. ALL SAFETY MEASURES ARE IN PLACE
[2019-05-18] MEDS: ESCITALOPRAM 20 MG TAB PO SCH (09:36)
[2019-05-18] MEDS: LACTOBACILLUS RHAMNOSUS GG 1 EACH CAP PO SCH (09:36)
[2019-05-18] MEDS: DIVALPROEX 500 MG TABER PO SCH ×2 (09:36→21:22)
[2019-05-18] MEDS: BENZTROPINE 1 MG TAB PO SCH ×2 (09:37→21:23)
[2019-05-18] MEDS: levETIRAcetam 500 MG TAB PO SCH ×2 (09:37→21:23)
[2019-05-18] MEDS: OXYBUTYNIN 5 MG TAB PO SCH ×2 (09:37→21:22)
--- NOTE | 2019-05-18 11:31 | NUR ---
FREQUENT ROUNDING ON PT PT APPEARS STABLE AND IN NO APPARENT DISTRESS. ALL SAFETY MEASURES ARE IN PLACE
--- NOTE | 2019-05-18 13:46 | NUR ---
FREQUENT ROUNDING ON PT PT APPEARS STABLE AND IN NO APPARENT DISTRESS.
--- NOTE | 2019-05-18 15:30 | NUR ---
FREQUENT ROUNDING ON PT PT APPEARS STABLE AND IN NO APPARENT DISTRESS. ALL SAFETY MEASURES ARE IN PLACE WILL CONTINUE TO MONITOR
[2019-05-18 16:34] VITALS: BP 122/95
--- NOTE | 2019-05-18 19:14 | NUR ---
ENDORSED PT TO PM RN PT APPEARS STABLE AND IN NO APPARENT DISTRESS. ALL SAFETY MEASURES ARE IN PLACE IV SITE PATENT AND SHOWS NO SIGNS OF INFLAMMATION OR INFILTRATION. SEIZURE PRECAUTIONS IN PLACE. BED ALARM ON
--- NOTE | 2019-05-18 19:15 | NUR ---
RECEIVED REPORT FROM AM RN FOR CONTINUITY OF CARE. PATIENT A/O X1. AMBULATES TO BATHROOM WITH ASSISTANCE. SAFETY PRECAUTIONS IN PLACE. BED IN LOW POSITION. BED ALARM ON. IV ON LFA 22 G WITH IVF. WILL CONTINUE TO MONITOR.
[2019-05-18] MEDS ORDERED: AZIT250T3 PO (20:08)
[2019-05-18] MEDS ORDERED: LACT10CA PO (20:08)
--- NOTE | 2019-05-18 21:10 | NUR ---
ROUNDS DONE. PATIENT RESTING COMFORTABLY IN BED. VISIBLE CHEST RISE AND FALL NOTED.
[2019-05-18] MEDS: QUEtiapine FUMARATE 100 MG TAB PO SCH (21:27)
--- NOTE | 2019-05-18 23:05 | NUR ---
CHECKS DONE. PATIENT ASLEEP IN BED. NO DISTRESS NOTED.
[2019-05-19] VITALS: BP 129/89
[2019-05-19] MEDS: NACL 0.9% 1,000 ML IV SCH (01:03)
--- NOTE | 2019-05-19 01:03 | NUR ---
ROUNDS DONE. ASLEEP IN BED. VISIBLE CHEST RISE AND FALL.
[2019-05-19] MEDS: AZITHROMYCIN 250 MG in DEXTROSE 5% 250 ML IV SCH (01:05)
--- NOTE | 2019-05-19 03:00 | NUR ---
ASSISTED PATIENT TO BATHROOM. BED ALARM ON AND BED IN LOW POSITION. SAFETY ENSURED.
--- NOTE | 2019-05-19 04:45 | NUR ---
RESPONDED TO BED ALARM. ASSISTED PATIENT TO BATHROOM AND BACK TO BED. BED ALARM ON AND BED IN LOW POSITION. WILL CONTINUE TO MONITOR
[2019-05-19] MEDS: PANTOPRAZOLE 40 MG TABEC PO SCH (05:37)
--- NOTE | 2019-05-19 06:09 | NUR ---
SEEN BY DR. MARI. REVIEWED PLAN OF CARE. PATIENT COMFORTABLE IN BED. NO DISTRESS NOTED.
[2019-05-19 06:20] LABS: BASOPHILS % (AUTO) 0.3 % (0.0-2.0); EOSINOPHILS # (AUTO) 0.2 K/uL (0-0.4); EOSINOPHILS % (AUTO) 1.8 % (0.0-4.0); HEMATOCRIT 39.8 % (36-52); HEMOGLOBIN 13.3 g/dL (12.0-18.0); LYMPHOCYTES # (AUTO) 1.9 K/uL (2.0-11.5); LYMPHOCYTES % (AUTO) 22.4 % (20.5-51.1); MEAN CORPUSCULAR HEMOGLOBIN 32 pg (27-31); MEAN CORPUSCULAR HGB CONC 33 g/dL (33-37); MEAN CORPUSCULAR VOLUME 96.4 fL (80-94); MONOCYTES # (AUTO) 1.3 K/uL (0.8-1.0); MONOCYTES % (AUTO) 15.2 % (1.7-9.3); NEUTROPHILS % (AUTO) 60.3 % (42.2-75.2); PLATELET COUNT (AUTO) 204 K/uL (140-450); RED BLOOD CELL COUNT(AUTO) 4.13 MIL/uL (4.20-6.10); RED CELL DISTRIBUTION WIDTH 12.7 % (11.6-13.7); WHITE BLOOD COUNT (AUTO) 8.3 K/uL (4.8-10.8)
--- NOTE | 2019-05-19 06:43 | NUR ---
VITALS STABLE. DUE MEDS GIVEN. WILL ENDORSE TO AM SHIFT RN FOR CONTINUITY OF CARE.
[2019-05-19 06:45] LABS: ANION GAP 9.2 (8-16); CARBON DIOXIDE 30.5 mmol/L (21-32); CREATININE 0.8 mg/dL (0.7-1.3); POTASSIUM 3.7 mmol/L (3.5-5.1)
[2019-05-19 06:51] LABS: MAGNESIUM 1.9 mg/dL (1.8-2.4)
--- NOTE | 2019-05-19 08:19 | NUR ---
RECEIVED HAND OFF REPORT FROM PM RN PT APPEARS STABLE AND IN NO APPARENT DISTRESS ALL SAFETY MEASURES ARE IN PLACE WILL CONTINUE TO MONITOR
[2019-05-19] MEDS: DIVALPROEX 500 MG TABER PO SCH (08:52)
[2019-05-19] MEDS: BENZTROPINE 1 MG TAB PO SCH (08:52)
[2019-05-19] MEDS: levETIRAcetam 500 MG TAB PO SCH (08:53)
[2019-05-19] MEDS: LACTOBACILLUS RHAMNOSUS GG 1 EACH CAP PO SCH (08:53)
[2019-05-19] MEDS: OXYBUTYNIN 5 MG TAB PO SCH (08:53)
[2019-05-19] MEDS: ESCITALOPRAM 20 MG TAB PO SCH (08:53)
[2019-05-19 08:55] VITALS: BP 127/79
--- NOTE | 2019-05-19 11:58 | NUR ---
SPOKE WITH KOBI FROM [facility] [phone]. INFORMED HER OF THE PLAN FOR DISCHARGE FOR THE PATIENT TODAY. SHE STATED SHE CAN ARRANGE FOR SOMEONE TO PICK THE PATIENT UP AROUND [phone] SHE WILL CALL AND CONFIRM THE TIME
[2019-05-19 12:00] VITALS: BP 110/64
[2019-05-19] MEDS ORDERED: LACT10CA1 PO (12:21)
[2019-05-19] MEDS ORDERED: AZIT250T4 PO (12:21)
--- NOTE | 2019-05-19 13:46 | NUR ---
FREQUENT ROUNDING ON PT PT APPEARS STABLE AND IN NO APPARENT DISTRESS. ALL SAFETY MEASURES ARE IN PLACE WILL CONTINUE TO MONITOR.
--- NOTE | 2019-05-19 14:22 | NUR ---
PT WAS PICKED UP BY [facility] TO GO BACK TO [facility]. REMOVED ID BAND, REMOVED IV IV TIP INTACT. REVIEWED DISCHARGE INSTRUCTIONS AND FOLLOW UP APPOINTMENT. PROVIDED WRITTEN PRESCRIPTION FOR PT. ANSWERED ALL QUESTIONS. PT WAS TAKEN OFF THE UNIT VIA WHEELCHAIR WITH ALL PERSONAL BELONGINGS.
--- NOTE | 2019-05-20 09:04 | NUR ---
Technical Data Analyst Note: I received a call from Manager Material Daysi from ext [phone], she requested DC summary. I faxed DC Summary to Daysi, fax number .
== END 2019-05-19 14:20 | disposition home or self-care (01) | DRG 193 ==
LOC: MED 17:31 → MTU 23:09
PROVIDERS: ADMIT General Practice; ATTEND General Practice
DX: J18.9 Pneumonia, unspecified organism (principal); J96.01 Acute respiratory failure with hypoxia; E44.0 Moderate protein-calorie malnutrition; G93.40 Encephalopathy, unspecified; R65.10 Systemic inflammatory response syndrome (SIRS) of non-infectious origin without acute organ dysfunction; G40.909 Epilepsy, unspecified, not intractable, without status epilepticus; K21.9 Gastro-esophageal reflux disease without esophagitis; N40.0 Benign prostatic hyperplasia without lower urinary tract symptoms; F79 Unspecified intellectual disabilities; F39 Unspecified mood [affective] disorder; Z68.23 Body mass index [BMI] 23.0-23.9, adult; Z79.899 Other long term (current) drug therapy
CPT/HCPCS: 36415; 71045; 80048; 80053; 80305; 81003; 83036; 83605; 83735; 83880; 84100; 84439; 84443; 84484; 85025; 85610; 85730; 87040; 87081; 87086; 93005; 96361; 96365; 99285; J0456; J0696; J1956; J7030; J7060; Q0092

== ENCOUNTER 2021-11-15 18:07 | Observation (INO) | payer OTHER, BC ==
[~2021-11-15] VITALS: Ht 160 cm; Wt 59.4 kg
[~2021-11-15 18:07] MED LIST changes: -ARIP20TA1 PO; -ATA25 PO; +ATRO1TAB PO; +AZIT250T4 PO; -CLON1TAB PO; +DIVA500T1 PO; +IMO2 PO; -LACT1.4C PO; +LACT10CA1 PO; -LAM25 PO; -LEVO750T2 PO; +LORA-476 PO; -METO-460 PO; -METR250T2 PO; -OLAN10TA PO; -PROP10TA28 PO; -RANI-287 PO
[2021-11-15 18:13] VITALS: BP 135/89
--- NOTE | 2021-11-15 19:08 | NUR ---
ALEC BENAVIDES HANDED TO LAB
--- NOTE | 2021-11-15 19:15 | NUR ---
61 Y/O MALE BIB CAREGIVER FROM FACILITY C/O WEAKNESS SINCE YDAY. PT NOTICED TO BE STRUGGLING GETTING OUT OF BED AND SOFA. NO CHANGE IN APPETITE NOTED. DENIES FEVER, COUGH, CONGESTION. SEIZURE PADS IN PLACE. BED IN LOWEST POSITION, BED RAILS X1. PMH: AUTISM, MENTAL RETARDATION, OCD, SEIZURE NKA
--- NOTE | 2021-11-15 19:16 | NUR ---
Pt report given to DEANN NIETO. Transfer of care at this time.
--- NOTE | 2021-11-15 19:18 | NUR ---
Blood sample collected, handed to CPT Geovanna at ER bedside
--- NOTE | 2021-11-15 19:50 | NUR ---
PT TAKEN TO CT
[2021-11-15 20:02] LABS: BASOPHILS % (AUTO) 0.3 % (0.0-2.0); EOSINOPHILS # (AUTO) 0.1 K/uL (0-0.4); EOSINOPHILS % (AUTO) 0.7 % (0.0-4.0); HEMATOCRIT 42.3 % (36-52); HEMOGLOBIN 14.1 g/dL (12.0-18.0); LYMPHOCYTES # (AUTO) 2.1 K/uL (2.0-11.5); LYMPHOCYTES % (AUTO) 27.8 % (20.5-51.1); MEAN CORPUSCULAR HEMOGLOBIN 32 pg (27-31); MEAN CORPUSCULAR HGB CONC 33 g/dL (33-37); MEAN CORPUSCULAR VOLUME 94.7 fL (80-94); MONOCYTES # (AUTO) 1.5 K/uL (0.8-1.0); MONOCYTES % (AUTO) 20.3 % (1.7-9.3); NEUTROPHILS # (AUTO) 3.8 K/uL (1.8-7.7); NEUTROPHILS % (AUTO) 50.9 % (42.2-75.2); PLATELET COUNT (AUTO) 185 K/uL (140-450); RED BLOOD CELL COUNT(AUTO) 4.46 MIL/uL (4.20-6.10); RED CELL DISTRIBUTION WIDTH 13.4 % (11.6-13.7); WHITE BLOOD COUNT (AUTO) 7.6 K/uL (4.8-10.8)
[2021-11-15 20:23] LABS: ALBUMIN 3.1 g/dL (3.4-5.0); ANION GAP 6.6 (8-16); ASPARTATE AMINOTRANSFERASE 18 U/L (15-37); CHLORIDE 102 mmol/L (98-107); CREATININE 0.9 mg/dL (0.6-1.3); GFR ARICAN-AMERICAN 110 mL/min (>90); GLUCOSE 92 mg/dL (74-106); POTASSIUM 3.6 mmol/L (3.5-5.1); SODIUM SERUM 138 mmol/L (136-145); TOTAL BILIRUBIN 0.4 mg/dL (0.0-1.0); UREA NITROGEN, BLOOD 14 mg/dL (7-18)
[2021-11-15 20:25] LABS: ACETAMINOPHEN < 0.5 ug/ml (10-30); SALICYLATE < 2.8 mg/dL (2.8-20.0)
--- NOTE | 2021-11-15 21:24 | NUR ---
[employer] FAXEDF TO [facility] FOR ADMISSION @ [phone]
--- NOTE | 2021-11-15 21:30 | NUR ---
3ML VBG COLLECTED FOR RT
[2021-11-15 21:52] LABS: APPEARANCE,URINE CLEAR (CLEAR); BILIRUBIN,URINE NEGATIVE (NEGATIVE); BLOOD, URINE NEGATIVE (NEGATIVE); COLOR,URINE YELLOW (YELLOW); LEUKOCYTE ESTERASE ,URINE NEGATIVE (NEGATIVE); NITRITE, URINE NEGATIVE (NEGATIVE); PH,URINE 6.5 (5.0-9.0); UGLUCOSE NEGATIVE (NEGATIVE)
--- NOTE | 2021-11-15 21:55 | NUR ---
GRISELDA FROM CALLED FOR ADMITTING PT FOR OBSERVATION; CONFIRMED WITH DR LEIVA. , EXT [phone]
[2021-11-15 22:13] LABS: BARBITURATE, URINE NEGATIVE ng/ml (NEG <=200); BENZODIAZEPINE, URINE NEGATIVE ng/mL (NEG <=200); CANNABINOID, URINE NEGATIVE ng/mL (NEG <=50); COCAINE, URINE NEGATIVE ng/mL (NEG <=300); OPIATE, URINE NEGATIVE ng/mL (NEG <=2000); PHENCYCLIDINE SCREEN,URINE NEGATIVE ng/mL (NEG <=25)
--- NOTE | 2021-11-15 23:35 | NUR ---
Patient will be admitted to care of DR TAVERA. Admited to TELE. Will go to room 107A. Belongings list completed. Report to EMILIA LIN.
--- NOTE | 2021-11-15 23:35 | NUR ---
PATIENT WAS BROUGHT TO [facility] FROM ER VIA GURNEY AWAKE NON VERBAL. DX: GENERALIZED WEAKNESS. NO S/S OF RESPIRATORY FAILURE. SKIN IS INTACT NO WOUND. ALL SAFETY PRECAUTIONS ARE IN PLACE. BED IN LOW POSITION. PADDED SIDE RAILS FOR SEIZURE PRECAUTION. ON TELE MONITOR. CALL LIGHT WITHIN REACH. MRSA SCREENING DONE. WILL CONTINUE TO MONITOR PT.
--- NOTE | 2021-11-16 00:48 | NUR ---
PATIENT PULLED OUT HIS PERIPHERAL IV LINE.
[2021-11-16 04:00] VITALS: BP 141/76
[2021-11-16] MEDS: NACL 0.9% 1,000 ML IV SCH (05:20)
--- NOTE | 2021-11-16 06:40 | NUR ---
STARTED PERIPHERAL IV LINE ON THE LEFT FOREARM WITH GOOD BACK FLOW OF BLOOD. TOLERATED WELL.
[2021-11-16 06:53] LABS: ALBUMIN 3.2 g/dL (3.4-5.0); ANION GAP 7.6 (8-16); CARBON DIOXIDE 30.6 mmol/L (21-32); CREATININE 0.8 mg/dL (0.6-1.3); POTASSIUM 4.2 mmol/L (3.5-5.1); TOTAL BILIRUBIN 0.7 mg/dL (0.0-1.0)
[2021-11-16 07:19] LABS: BASOPHILS % (AUTO) 0.2 % (0.0-2.0); EOSINOPHILS # (AUTO) 0.1 K/uL (0-0.4); HEMATOCRIT 43.7 % (36-52); HEMOGLOBIN 14.9 g/dL (12.0-18.0); LYMPHOCYTES # (AUTO) 1.6 K/uL (2.0-11.5); LYMPHOCYTES % (AUTO) 21.1 % (20.5-51.1); MEAN CORPUSCULAR HEMOGLOBIN 32 pg (27-31); MEAN CORPUSCULAR HGB CONC 34 g/dL (33-37); MEAN CORPUSCULAR VOLUME 94.3 fL (80-94); MONOCYTES # (AUTO) 1.6 K/uL (0.8-1.0); NEUTROPHILS # (AUTO) 4.4 K/uL (1.8-7.7); NEUTROPHILS % (AUTO) 57.3 % (42.2-75.2); PLATELET COUNT (AUTO) 203 K/uL (140-450); RED BLOOD CELL COUNT(AUTO) 4.64 MIL/uL (4.20-6.10); RED CELL DISTRIBUTION WIDTH 13.6 % (11.6-13.7); WHITE BLOOD COUNT (AUTO) 7.6 K/uL (4.8-10.8)
--- NOTE | 2021-11-16 07:38 | NUR ---
PATIENT IS STABLE. ENDORSED TO AM NURSE FOR CONTINUITY OF CARE.
[2021-11-16 07:41] LABS: MONOCYTES % (AUTO) 20.4 % (1.7-9.3)
[2021-11-16 08:00] VITALS: BP 113/76
--- NOTE | 2021-11-16 10:53 | NUR ---
P.T. NOTES P.T. EVAL COMPLETED; REFER TO EVAL FOR DETAILS.
--- NOTE | 2021-11-16 11:33 | NUR ---
RECEIVED PATIENT OUT OF BED IN THE BATHROOM WITH NO TELE. PATIENT REFUSED TELE MONITOR PER TEACHING ARTIST. ASSISTED PATIENT BACK TO BED AND PACIFIED. MADE PATIENT COMFORTABLE IN BED.
[2021-11-16 12:00] VITALS: BP 132/60
[2021-11-16] MEDS ORDERED: LORazepam 1 MG TAB PO SCH (12:35)
[2021-11-16] MEDS ORDERED: ACETAMINOPHEN 325 MG TAB PO PRN (12:40)
[2021-11-16] MEDS ORDERED: ZOLPIDEM 5 MG TAB PO PRN (12:40)
[2021-11-16] MEDS ORDERED: MECLIZINE 25 MG TAB PO PRN (12:40)
[2021-11-16] MEDS ORDERED: DOCUSATE SODIUM 100 MG GELCAP PO PRN (12:40)
[2021-11-16] MEDS ORDERED: ONDANSETRON 4 MG/2 ML VIAL IM/IVP PRN (12:40)
[2021-11-16 13:11] LABS: PROTHROMBIN TIME 10.4 secs (10.8-13.4)
[2021-11-16 13:22] LABS: PHOSPHORUS 3.4 mg/dL (2.5-4.9); THYROID STIMULATING HORMONE 1.5 uIU/mL (0.34-3.74)
[2021-11-16] MEDS ORDERED: LORazepam 1 MG TAB PO PRN (13:28)
[2021-11-16 16:00] VITALS: BP 144/87
--- NOTE | 2021-11-16 18:46 | NUR ---
IV FOUND OUT INTACT AND PATIENT REFUSED REINSERTION. POMISED LATR.
--- NOTE | 2021-11-16 19:30 | NUR ---
RECEIVED PT FROM AM NURSE FOR CONTINUITY OF CARE. PT IS STABLE
[2021-11-16 20:00] VITALS: BP 120/79
[2021-11-16] MEDS: BENZTROPINE 1 MG TAB PO SCH (20:30)
[2021-11-16] MEDS: levETIRAcetam 500 MG TAB PO SCH (20:30)
[2021-11-16] MEDS ORDERED: QUEtiapine FUMARATE 100 MG TAB PO SCH (21:00)
--- NOTE | 2021-11-16 21:30 | NUR ---
ALL MEDICATIONS GIVEN,TOLERATED WELL,RESPIRATIONS EVEN AND UNLABORED,NO SEIZURE NOYTED.
[2021-11-17] VITALS: BP 124/90
--- NOTE | 2021-11-17 | NUR ---
TRIED TO INSERT IV BUT PATIENT REFUSED,WILL TRY AGAIN LATER
--- NOTE | 2021-11-17 02:00 | NUR ---
PATIENT SLEEPING,BREATHING EVEN AND UNLABORED,NO DISTRESS NOTED
[2021-11-17 04:00] VITALS: BP 124/80
--- NOTE | 2021-11-17 04:00 | NUR ---
PATIENT ASLEEP,NO SEIZURE EPISODE NOTED, RESPIRATIONS EVEN AND UNLABORED
[2021-11-17] MEDS: NACL 0.9% 1,000 ML IV SCH (05:20)
--- NOTE | 2021-11-17 06:03 | NUR ---
NO EPISODE OF SEIZURE THIS SHIFT,NO COMPLAIN OF PAIN OR SOB NOTED
[2021-11-17 08:00] VITALS: BP 191/67
--- NOTE | 2021-11-17 08:00 | NUR ---
PT MOVED TO ROOM 110B. PT WAS WALKING HALLS AND UNABLE TO REDIRECT TO ROOM. PT MOVED CLOSER TO NURSING
--- NOTE | 2021-11-17 08:41 | NUR ---
PATIENT HAS BEEN SCREENED AND CATEGORIZED LOW NUTRITION RISK. PATIENT WILL BE SEEN WITHIN 7 DAYS OF ADMISSION. 11/17/21-11/23/[address]
[2021-11-17] MEDS ORDERED: DIPHENOXYLATE /ATROPINE 2.5 MG TAB PO SCH (09:00)
[2021-11-17] MEDS ORDERED: LOPERAMIDE 2 MG CAP PO SCH (09:00)
[2021-11-17] MEDS ORDERED: DIVALPROEX 500 MG TABER PO SCH (09:00)
[2021-11-17] MEDS ORDERED: NON-FORMULARY ITEM (Lactobacillus Rhamnosus GG (Culturelle) 10 Billion) PO SCH (09:00)
[2021-11-17] MEDS ORDERED: OXYBUTYNIN 5 MG TAB PO SCH (09:00)
[2021-11-17] MEDS ORDERED: PANTOPRAZOLE 40 MG TABEC PO SCH (09:00)
[2021-11-17] MEDS ORDERED: LACTOBACILLUS RHAMNOSUS GG 1 EACH CAP PO SCH (09:00)
[2021-11-17] MEDS ORDERED: ESCITALOPRAM 20 MG TAB PO SCH (09:00)
[2021-11-17 09:20] LABS: CHOL/HDL RATIO 2.9 (1-4.5)
--- NOTE | 2021-11-17 10:30 | NUR ---
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 PT WILL DC BACK TO [facility]. FANY TO [facility] AND TRANSPORT BETWEEN [phone]
[2021-11-17] MEDS: BENZTROPINE 1 MG TAB PO SCH (10:37)
[2021-11-17] MEDS: levETIRAcetam 500 MG TAB PO SCH (10:37)
--- NOTE | 2021-11-17 11:55 | NUR ---
PT TRANSPORTED VIA WHEELCHAIR WITH [employer] AND HEATER. ALL PERSONAL BELONGINGS IN POSSESSIONS. ALL SAFETY MEASURES IN PLACE. NO S/S OF DISTRESS. ID BAND REMOVED.
[2021-11-17 12:00] VITALS: BP 151/99
== END 2021-11-17 11:55 | disposition home or self-care (01) ==
LOC: MED 18:07 → MTU 22:38
DX: G93.89 Other specified disorders of brain (principal); Z20.822 Contact with and (suspected) exposure to COVID-19; R53.1 Weakness; R26.81 Unsteadiness on feet; F79 Unspecified intellectual disabilities; F42.9 Obsessive-compulsive disorder, unspecified; F39 Unspecified mood [affective] disorder; K58.9 Irritable bowel syndrome, unspecified; G40.909 Epilepsy, unspecified, not intractable, without status epilepticus; K59.00 Constipation, unspecified; F41.8 Other specified anxiety disorders; N32.81 Overactive bladder; K21.9 Gastro-esophageal reflux disease without esophagitis; F84.0 Autistic disorder; E44.1 Mild protein-calorie malnutrition; G31.89 Other specified degenerative diseases of nervous system; Z79.899 Other long term (current) drug therapy
CPT/HCPCS: 36415; 70450; 71045; 80053; 80061; 80305; 81003; 82150; 82550; 82803; 83036; 83605; 83690; 83735; 83880; 84100; 84134; 84436; 84443; 84484; 85025; 85610; 85730; 87040; 87081; 87426; 93005; 93307; 93880; 97112; 97116; 97162; 99285; G0378; G0480; G0482; Q0092

== ENCOUNTER 2022-01-09 18:51 | Emergency (ER) | payer OTHER, BC ==
[~2022-01-09] VITALS: Ht 162.6 cm; Wt 63.2 kg
[~2022-01-09 18:51] MED LIST changes: -AZIT250T4 PO
[2022-01-09 18:58] VITALS: BP 134/88
--- NOTE | 2022-01-09 19:00 | NUR ---
PT ASSISTED TO BED 11 IN WHEELCHAIR.
[2022-01-09] MEDS ORDERED: BACITRACIN OINT 500 UNITS/GM PKT TP ONE ×2 (19:15→20:39)
[2022-01-09] MEDS ORDERED: IBUP-2213 PO (20:26)
[2022-01-09 20:43] VITALS: BP 132/86
--- NOTE | 2022-01-09 20:43 | NUR ---
Patient discharged with v/s stable. Written and verbal after care instructions given TO CAREGIVER and explained. Patient alert, oriented and verbalized understanding of instructions. Ambulatory with by caregiver. All questions addressed prior to discharge. ID band removed. Patient advised to follow up with PMD. Rx of IBUPROFEN given. Opportunity to ask questions provided and answered.
== END 2022-01-09 20:43 | disposition home or self-care (01) ==
LOC: MED 18:51
DX: S00.91XA Abrasion of unspecified part of head, initial encounter (principal); K21.9 Gastro-esophageal reflux disease without esophagitis; F84.0 Autistic disorder; Z79.899 Other long term (current) drug therapy; W19.XXXA Unspecified fall, initial encounter; Y93.89 Activity, other specified; Y92.89 Other specified places as the place of occurrence of the external cause; Y99.8 Other external cause status
CPT/HCPCS: 70450; 70486; 99284

== ENCOUNTER 2022-04-14 16:41 | Inpatient (IN) | payer OTHER, BC ==
[~2022-04-14] VITALS: Ht 162.6 cm; Wt 64.0 kg
[2022-04-14 17:47] VITALS: BP 105/66
[2022-04-14 20:36] LABS: BASOPHILS % (AUTO) 0.3 % (0.0-2.0); EOSINOPHILS # (AUTO) 0.1 K/uL (0-0.4); EOSINOPHILS % (AUTO) 0.7 % (0.0-4.0); HEMATOCRIT 41.9 % (36-52); HEMOGLOBIN 13.9 g/dL (12.0-18.0); LYMPHOCYTES # (AUTO) 2.7 K/uL (2.0-11.5); LYMPHOCYTES % (AUTO) 25.9 % (20.5-51.1); MEAN CORPUSCULAR HEMOGLOBIN 32 pg (27-31); MEAN CORPUSCULAR HGB CONC 33 g/dL (33-37); MEAN CORPUSCULAR VOLUME 94.9 fL (80-94); MONOCYTES # (AUTO) 1.3 K/uL (0.8-1.0); MONOCYTES % (AUTO) 12.9 % (1.7-9.3); NEUTROPHILS # (AUTO) 6.3 K/uL (1.8-7.7); NEUTROPHILS % (AUTO) 60.2 % (42.2-75.2); PLATELET COUNT (AUTO) 184 K/uL (140-450); RED BLOOD CELL COUNT(AUTO) 4.41 MIL/uL (4.20-6.10); RED CELL DISTRIBUTION WIDTH 13.6 % (11.6-13.7); WHITE BLOOD COUNT (AUTO) 10.4 K/uL (4.8-10.8)
[2022-04-14 21:06] LABS: ALBUMIN 3.3 g/dL (3.4-5.0); ANION GAP 11.9 (8-16); CARBON DIOXIDE 30.4 mmol/L (21-32); POTASSIUM 3.3 mmol/L (3.5-5.1); TOTAL BILIRUBIN 0.5 mg/dL (0.0-1.0)
[2022-04-14 21:11] LABS: FREE T4 (FREE THYROXINE) 0.68 ng/dL (0.76-1.46)
--- NOTE | 2022-04-14 23:38 | NUR ---
Soraya brown in [facility] - 04/14/22 at 2339 by BIBI PT WHEELCHAIRED
--- NOTE | 2022-04-14 23:39 | NUR ---
PT WHEELCHAIRED TO BED 3 AND TRANSFER WITH ASSISTANCE TO BED. CHANGED INTO GOWN AND PLACED ON HEART MONITOR
--- NOTE | 2022-04-15 00:44 | NUR ---
SPOKE TO JESSICA BULK DELIVERY DRIVER FROM [employer] . GAVE A AUTH CODE FOR OBS INPT
--- NOTE | 2022-04-15 01:42 | NUR ---
COVID SWAB COLLECTED AND SENT TO LAB
[2022-04-15 02:39] LABS: APPEARANCE,URINE CLEAR (CLEAR); BILIRUBIN,URINE NEGATIVE (NEGATIVE); BLOOD, URINE NEGATIVE (NEGATIVE); COLOR,URINE YELLOW (YELLOW); LEUKOCYTE ESTERASE ,URINE NEGATIVE (NEGATIVE); NITRITE, URINE NEGATIVE (NEGATIVE); PH,URINE 6.5 (5.0-9.0); UGLUCOSE NEGATIVE (NEGATIVE)
--- NOTE | 2022-04-15 02:42 | NUR ---
62YR OLD MALE C/O GEN WEAKNESS. CAREGIVER STATES PT HAS BEEN FALLING MORE FREQ. SKIN ABRASIONS TO BACK AND LEGS S/P FALL. PT IS NONVERBAL. SKIN WARM, DRY, INTACT. RESP EVEN AND UNLABORED. HOB ELEVATED. ON BEDSIDE RANCH COOK. CAREGIVER LEFT FOR THE NIGHT. SIDE RAILS UP X2 BED AT LOWEST POSITION NKDA PNA AUTISTIC OCD ANXIETY NONVERBAL
--- NOTE | 2022-04-15 03:27 | NUR ---
Assisted patient to restroom.
--- NOTE | 2022-04-15 03:33 | NUR ---
PT IS AWAKE SITTING UP BED. RESP EVEN AND UNLABORED. ON BEDSIDE COSMETIC SALES CONSULTANT. HOB ELEVATED. SIDE RAILS UP X2 . PT IS NON VERBAL. CALL LIGHT WITHIN REACH TO PT
--- NOTE | 2022-04-15 03:35 | NUR ---
PT IS AWAKE SITTING UP BED. RESP EVEN AND UNLABORED. ON BEDSIDE SERVICE SPECIALIST. HOB ELEVATED. SIDE RAILS UP X2 . PT IS NON VERBAL. CALL LIGHT WITHIN REACH TO PT
[2022-04-15] MEDS: NACL 0.9% 1,000 ML IV SCH ×2 (03:56→13:25)
[2022-04-15 08:00] VITALS: BP 124/82
--- NOTE | 2022-04-15 08:00 | NUR ---
PT ARRIVED ON UNIT FROM ED VIA GURNEY. RECEIVED REPORT FROM ED NURSE FOR CONTINUITY OF CARE. PT IN STABLE CONDITION, NONVERBAL AND BREATHING EVEN, REGULAR AND UNLABORED ON ROOM AIR. PT SKIN INTACT, WITH BRUISING NOTED ON SPINE AND BILATERAL KNEES. PT HAS VERY WEAK AND UNSTEADY GAIT, AND KEEPS ATTEMPTING TO GET OUT OF BED. PT PLACED IN SITTER ROOM WITH LOAN SERVICE OFFICER MATTHEW. NO SIGNS OF PAIN OR DISTRESS NOTED AT THIS TIME. SEIZURE PRECAUTIONS IN EFFECT.
--- NOTE | 2022-04-15 10:00 | NUR ---
PT VISUALLY ASSESSED, NO SIGNS OF PAIN OR DISTRESS AT THIS TIME. PT RESTING ON BED.
[2022-04-15] MEDS ORDERED: guaiFENesin DM 200/20 MG-10 ML 10 ML UDC PO PRN (10:05)
[2022-04-15] MEDS ORDERED: ACETAMINOPHEN 325 MG TAB PO PRN (10:05)
[2022-04-15] MEDS ORDERED: HYDROcodone/APAP 7.5/325 MG 1 TAB PO PRN (10:05)
[2022-04-15] MEDS ORDERED: DOCUSATE SODIUM 100 MG GELCAP PO PRN (10:05)
[2022-04-15] MEDS ORDERED: POTASSIUM CHLORIDE 10 MEQ TABER PO PRN (10:05)
[2022-04-15] MEDS ORDERED: ONDANSETRON 4 MG/2 ML VIAL IM/IVP PRN (10:05)
--- NOTE | 2022-04-15 12:00 | NUR ---
PT SITTING UP FOR LUNCH. NO SIGNS OF PAIN OR DISTRESS NOTED AT THIS TIME.
[2022-04-15] MEDS: levETIRAcetam 500 MG TAB PO SCH ×2 (12:19→20:28)
[2022-04-15 12:23] LABS: PROTHROMBIN TIME 10.9 secs (10.8-13.4)
[2022-04-15 12:49] LABS: CHOL/HDL RATIO 2.1 (1-4.5); FREE T4 (FREE THYROXINE) 0.76 ng/dL (0.76-1.46); MAGNESIUM 1.8 mg/dL (1.8-2.4); PHOSPHORUS 3.2 mg/dL (2.5-4.9); THYROID STIMULATING HORMONE 2.85 uIU/mL (0.34-3.74)
--- NOTE | 2022-04-15 15:07 | NUR ---
PT IV SITE INFILTRATED. IV REMOVED, ATTEMPTED IV INSERTION, ASSISTED BY LAVERN RN AND DONNA RN TO KEEP PT'S ARMS STILL FROM TREMORS. NEW IV INSERTED ON LEFT FOREARM. PT AGITATED AND RESTLESS. NOTIFIED DR. SOUTH.
[2022-04-15 16:00] VITALS: BP 168/95
[2022-04-15] MEDS ORDERED: LORazepam 2 MG/ML VIAL IVP PRN (16:05)
--- NOTE | 2022-04-15 16:24 | NUR ---
RECEIVED NEW ORDERS FROM DR. SOUTH. PRN ATIVAN IVP TO BE GIVEN FOR AGITATION AND RESTLESSNESS. ADMINISTERED PRN MEDICATION. PT STILL AGITATED.
--- NOTE | 2022-04-15 17:30 | NUR ---
PT STILL RESTLESS BUT VISIBLY LESS AGITATED. ASSISTED GENERAL PASSENGER AGENT JONNATHAN IN AMBULATING PT TO RESTROOM. PT HAD WEAK GAIT, BUT WAS CONTINENT AND ABLE TO VOID AND HAVE LARGE BM. PT SAFELY BACK IN BED.
--- NOTE | 2022-04-15 18:18 | NUR ---
PT VISUALLY ASSESSED AND RESTING. NO SIGNS OF PAIN OR DISTRESS NOTED AT THIS TIME.
--- NOTE | 2022-04-15 19:21 | NUR ---
ENDORSED PT TO NIGHTSHIFT NURSE BRANDEN FOR CONTINUITY OF CARE. PT IN STABLE CONDITION.
--- NOTE | 2022-04-15 19:22 | NUR ---
RECD. RESTING IN BED, AWAKE, ALERT, APHASIC. RESPIRATION EVEN AND UNLABORED. IV LINE AT THE LEFT FOREARM G22, PATENT AND INTACT. SAFETY MEASURES ENFORCED. BED IN THE LOWEST POSITION, SIDE RAILS UP. NO APPEARANCE OF PAIN NOTED, 0/10.
[2022-04-15 20:00] VITALS: BP 121/80
[2022-04-15] MEDS: BENZTROPINE 1 MG TAB PO SCH (20:28)
[2022-04-15] MEDS: QUEtiapine FUMARATE 100 MG TAB PO SCH (21:00)
--- NOTE | 2022-04-15 21:00 | NUR ---
NIGHT MEDICATIONS ADMINISTERED BY LOUIS NIETO, TOLERATED WELL.
[2022-04-15] MEDS: ZOLPIDEM 5 MG TAB PO PRN (22:55)
--- NOTE | 2022-04-16 | NUR ---
ASSISTED TO GET OUT OF BED TO GO TO THE BR. VOIDING WELL AND HAD BM TWICE, FORMED BM, BROWN IN COLO AND MODERATE AMOUNT.
--- NOTE | 2022-04-16 05:00 | NUR ---
SAFETY MAINTAINED DURING THE SHIFT. WENT SEVERAL TIMES TO THE BR. GAIT STEADY BUT WITH TREMORS OF BILATERAL HANDS AND SHAKY HEAD.
[2022-04-16 07:09] LABS: T4 (THYROXINE) 4.8 ug/dL (4.5-12.0)
--- NOTE | 2022-04-16 07:20 | NUR ---
CONDITION REMAIN STABLE. ENDORSED TO AM SHIFT NURSE FOR CONTINUITY OF CARE.
--- NOTE | 2022-04-16 07:20 | NUR ---
RECEIVED REPORT FROM NIGHTSHIFT NURSE BRANDEN FOR CONTINUITY OF CARE. PT IS IN STABLE CONDITION, CURRENTLY SLEEPING. PT IS APHASIC, UNABLE TO ASSESS ORIENTATION. BREATHING IS EVEN, REGULAR AND UNLABORED ON ROOM AIR. TREMORS STILL VISIBLE IN UPPER EXTREMITIES. PT SKIN INTACT, BRUISING ON THE KNEES AND MID SPINE NOTED. NIGHTSHIFT REPORTED NO EPISODES OF INCONTINENCE, PT WAS ABLE TO AMBULATE WITH 1 NURSE ASSIST WITH STEADIER GAIT. NO SIGNS OF PAIN OR DISTRESS NOTED AT THIS TIME.
[2022-04-16 07:45] LABS: ANION GAP 12.6 (8-16); CARBON DIOXIDE 27.9 mmol/L (21-32); CREATININE 0.8 mg/dL (0.6-1.3); POTASSIUM 3.5 mmol/L (3.5-5.1)
[2022-04-16 07:46] LABS: BASOPHILS % (AUTO) 0.3 % (0.0-2.0); EOSINOPHILS # (AUTO) 0.1 K/uL (0-0.4); EOSINOPHILS % (AUTO) 0.6 % (0.0-4.0); HEMOGLOBIN 14.4 g/dL (12.0-18.0); LYMPHOCYTES # (AUTO) 1.4 K/uL (2.0-11.5); LYMPHOCYTES % (AUTO) 15.2 % (20.5-51.1); MEAN CORPUSCULAR HEMOGLOBIN 32 pg (27-31); MEAN CORPUSCULAR HGB CONC 34 g/dL (33-37); MEAN CORPUSCULAR VOLUME 94.8 fL (80-94); MONOCYTES # (AUTO) 1.7 K/uL (0.8-1.0); MONOCYTES % (AUTO) 18.4 % (1.7-9.3); NEUTROPHILS # (AUTO) 6.1 K/uL (1.8-7.7); NEUTROPHILS % (AUTO) 65.5 % (42.2-75.2); PLATELET COUNT (AUTO) 201 K/uL (140-450); RED BLOOD CELL COUNT(AUTO) 4.53 MIL/uL (4.20-6.10); RED CELL DISTRIBUTION WIDTH 13.6 % (11.6-13.7); WHITE BLOOD COUNT (AUTO) 9.4 K/uL (4.8-10.8)
[2022-04-16 08:00] VITALS: BP 145/94
[2022-04-16] MEDS: PANTOPRAZOLE 40 MG TABEC PO SCH (08:48)
[2022-04-16] MEDS: levETIRAcetam 500 MG TAB PO SCH ×2 (08:48→20:24)
[2022-04-16] MEDS: OXYBUTYNIN 5 MG TAB PO SCH (08:49)
[2022-04-16] MEDS: BENZTROPINE 1 MG TAB PO SCH ×2 (08:49→20:25)
--- NOTE | 2022-04-16 08:50 | NUR ---
PT AMBULATED TO BATHROOM ON STEADY GAIT. PT HAD LARGE BM, BUT WAS NOT ABLE TO CLEAN HISSELF. PT AMBULATED TO BED INDEPENDENTLY WITHOUT INCIDENT.
[2022-04-16] MEDS: ESCITALOPRAM 20 MG TAB PO SCH (08:51)
--- NOTE | 2022-04-16 09:23 | NUR ---
PATIENT HAS BEEN SCREENED AND CATEGORIZED MODERATE NUTRITION RISK. PATIENT WILL BE SEEN WITHIN 3-5 DAYS OF ADMISSION. / OZIEL MONS[address] RD
--- NOTE | 2022-04-16 10:00 | NUR ---
PT VISUALLY ASSESSED. NO SIGNS OF PAIN OR DISTRESS AT THIS TIME.
--- NOTE | 2022-04-16 11:56 | NUR ---
P.T. NOTES P.T. EVAL COMPLETED; REFER TO EVAL FOR DETAILS.
--- NOTE | 2022-04-16 12:00 | NUR ---
PT AMBULATED TO BEDSIDE, HAD LARGE BM ON FLOOR AND IN FRONT OF TOILET. CLEANED PT VIA SPONGE BATH AND PERFORMED LINEN CHANGE. PT IN STABLE CONDITION AND STEADY GAIT.
--- NOTE | 2022-04-16 14:00 | NUR ---
PT VISUALLY ASSESSED, NO SIGNS OF PAIN OR DISTRESS NOTED. RESTING IN BED AT THIS TIME.
--- NOTE | 2022-04-16 14:31 | NUR ---
DC PLANNING PATIENT IS NONVERBAL, THEREFORE SW OUTREACHED TO [facility] TO GATHER COLLATERAL INFORMATION. SPOKE WITH ADMIN WHO REPORTS PATIENT HAS BEEN WITH [facility] SINCE 2001. PATIENT IS NONVERBAL AND IS TOTAL CARE AT FACILITY. ADMIN REPORTS PATIENT HAS BEEN AMBULATORY IN THE PAST HOWEVER, MOST RECENTLY HAS HAD A FEW FALLS. PATIENT DOES REQUIRE ASSISTANCE WITH ADL'S. PT MOM IS ACTIVE IN CARE AND VISITS WITH PATIENT FREQUENTLY AND CARRIES DPOA. PATIENT IS [facility], IR WORKER IS EVA SHAFER [phone]. DC PLAN IS FOR PATIENT TO RETURN TO [facility].
--- NOTE | 2022-04-16 14:36 | NUR ---
PT. WITH LOW JESUS SCALE AT MODERATE TO HIGH RISK, CONTINUE TO FOLLOW PRESSURE INJURY PREVENTION INTERVENTIONS. -POSITIONING: TURN AND REPOSITION PATIENT Q 2H OR SOONER USE PILLOWS TO KEEP BONY PROMINENCES FROM DIRECT CONTACT WITH SURFACES USE REPOSITIONING WEDGES TO PROVIDE 30-DEGREE ANGLE FOR SIDE LYING POSITIONS OFFLOADING OR FOAM DRESSING TO ALL TUBING TO PREVENT MEDICAL DEVICES RELATED PRESSURE INJURY -RE-EVALUATING AND MANAGING INCONTINENCE MONITOR SKIN CONDITION DURING POSITION CHANGE DO NOT MASSAGE REDNESS, BONY PROMINENCES FREQUENT SG-CARE AND PROVIDE BARRIER CREAMS PRN IF SOILING MOISTURE CONTROL BY OFFER BED SNYDER/URINAL /ABSORBENT PAD TO WICK AND HOLD MOISTURE KEEP SKIN DRY AND PROTECT FROM FRICTION -MANAGE FRICTION/SHEAR/MOBILITY KEEP HOB AT THE LOWEST LEVEL OF ELEVATION NO MORE THAN 30 DEGREE UNLESS OTHERWISE CONTRAINDICATED USE LIFT SHEET OR TRANSFER DEVICE TO MOVE PATIENT AND PREVENT LATERAL SHEER. PROTECT HEELS, ELBOWS BONY PROMINENCES WITH SKIN BERRIES OR FOAM DRESSING IF EXPOSED TO FRICTION OFFLOAD BILATERAL HEELS BY PLACING PILLOWS UNDER CALVES AT ALL TIMES, UNLESS OTHERWISE CONTRAINDICATED -PRESSURE REDISTRIBUTION SURFACE THERAPY STARR ISOFLEX MATTRESS -NUTRITION: PLEASE FOLLOW RD RECOMMENDATIONS AND OFFER NUTRITION SUPPLEMENTS IF ORDERED.
[2022-04-16 16:00] VITALS: BP 133/85
--- NOTE | 2022-04-16 16:00 | NUR ---
PT ATTEMPTED TO LEAVE ROOM, REFUSED REDIRECTION BACK INTO ROOM. FOUNDRY PROCESS ENGINEER SHAWNA ASSISTED IN REDIRECTING PT BACK INTO ROOM.
--- NOTE | 2022-04-16 18:00 | NUR ---
PT VISUALLY ASSESSED, NO SIGNS OF ANY PAIN OR DISTRESS.
--- NOTE | 2022-04-16 19:25 | NUR ---
RECD. SITTING ON BED AWAKE, ALERT, APHASIC. RESPIRATION EVEN AND UNLABORED. WATCHING TV. AMBULATES WITH ASSISTANCE TO THE BATHROOM. IV SALINE LOCK AT THE LEFT FOREARM G20, PATENT AND INTACT. NO APPEARANCE OF PAIN OR DISCOMFORT NOTED, 0/10.
--- NOTE | 2022-04-16 19:25 | NUR ---
ENDORSED PT TO NIGHTSHIFT YARA NEWTON OF CARE. PT IS IN STABLE CONDITION. Addendum: 04/16/22 at 1926 by Arnol Langford RN FOR [CONTINUITY] OF CARE. Addendum: 04/16/22 at 1927 by Arnol Langford RN NIGHTSHIFT NURSE OTERO
--- NOTE | 2022-04-16 20:00 | NUR ---
Patient's Plan of Care was discussed and reviewed with FLOWER OTERO.
--- NOTE | 2022-04-16 20:24 | NUR ---
SCHEDULED MEDICATIONS FOR THE NIGHT ADMINISTERED. TOLERATED WELL.
[2022-04-16] MEDS: QUEtiapine FUMARATE 100 MG TAB PO SCH (20:25)
--- NOTE | 2022-04-16 22:00 | NUR ---
ASSISTED BACK TO BED, WANDERING IN THE HALLWAY. REORIENTED TO HOSPITAL SITTING.
--- NOTE | 2022-04-16 22:30 | NUR ---
INSIDE ROOM, OPENING AND CLOSING DRAWERS. ASSISTED BACK TO BED.
[2022-04-16] MEDS: ZOLPIDEM 5 MG TAB PO PRN (22:52)
--- NOTE | 2022-04-16 22:53 | NUR ---
UNABLE TO SLEEP, MEDICATED WITH AMBIEN PER MD ORDER.
--- NOTE | 2022-04-16 23:50 | NUR ---
SLEEPING COMFORTABLY IN BED, RESPIRATION EVEN AND UNLABORED.
[2022-04-17] VITALS: BP 124/82
--- NOTE | 2022-04-17 00:30 | NUR ---
GET OUT OF BED TWO TIMES TO GO TO THE BR. ASSISTED BACK TO BED. D
--- NOTE | 2022-04-17 02:00 | NUR ---
GET OUT OF BED AND OPENING AND CLOSING DRAWERS OF THE BEDSIDE CABINET. ASSISTED BACK TO BED.
--- NOTE | 2022-04-17 03:15 | NUR ---
SLEEPING COMFORTABLY IN BED, NO APPARENT DISTRESS NOTED.
--- NOTE | 2022-04-17 06:00 | NUR ---
WENT TO THE BR TO VOID, ASSISTED BACK TO BED, SAFETY MAINTAINED.
--- NOTE | 2022-04-17 07:25 | NUR ---
CONDITION REMAIN STABLE. ENDORSED TO AM SHIFT NURSE FOR CONTINUITY OF CARE,
--- NOTE | 2022-04-17 07:26 | NUR ---
RECEIVED BEDSIDE REPORT FROM NIGHTSHIFT EMILIA OTERO, PT IS RESTING WITH NO S/S OF DISTRESS. PT IS DEVELOPMENTALLY DELAYED. ALTHOUGH APHASIC, PT CAN COMMUNICATE THE NEED TO USE THE RESTROOM BY CONSISTENT HAND MOVEMENTS IN THE FORM OF A FIST. PT IS ON ROOM AIR, WITH UNLABORED BREATHING. PT FREQUENTLY GETS OUT OF BED TO UTILIZE RESTROOM, AND IS DIRECTLY PROVIDED ASSISTANCE BECAUSE HE IS OFTEN INCONTINENT. PTS GAIT IS FAIR WITH BUE TREMORS. PT IS CONSISTENTLY SUPERVISED FOR ASSISTANCE IN AND OUT OF BED TO PREVENT FALLS.
[2022-04-17 07:40] LABS: BASOPHILS % (AUTO) 0.4 % (0.0-2.0); EOSINOPHILS # (AUTO) 0.3 K/uL (0-0.4); EOSINOPHILS % (AUTO) 3.6 % (0.0-4.0); HEMATOCRIT 38.4 % (36-52); LYMPHOCYTES # (AUTO) 1.4 K/uL (2.0-11.5); LYMPHOCYTES % (AUTO) 18.9 % (20.5-51.1); MEAN CORPUSCULAR HEMOGLOBIN 32 pg (27-31); MEAN CORPUSCULAR HGB CONC 34 g/dL (33-37); MEAN CORPUSCULAR VOLUME 94.6 fL (80-94); MONOCYTES # (AUTO) 1.4 K/uL (0.8-1.0); MONOCYTES % (AUTO) 18.3 % (1.7-9.3); NEUTROPHILS # (AUTO) 4.5 K/uL (1.8-7.7); NEUTROPHILS % (AUTO) 58.8 % (42.2-75.2); PLATELET COUNT (AUTO) 189 K/uL (140-450); RED BLOOD CELL COUNT(AUTO) 4.06 MIL/uL (4.20-6.10); RED CELL DISTRIBUTION WIDTH 13.3 % (11.6-13.7); WHITE BLOOD COUNT (AUTO) 7.6 K/uL (4.8-10.8)
[2022-04-17 07:51] LABS: ANION GAP 10.3 (8-16); CARBON DIOXIDE 28.2 mmol/L (21-32); CREATININE 0.7 mg/dL (0.6-1.3); POTASSIUM 3.5 mmol/L (3.5-5.1)
[2022-04-17 08:00] VITALS: BP 150/90
[2022-04-17] MEDS: CARBIDOPA/LEVODOPA 25/100 MG 1 TAB PO SCH ×3 (09:01→17:45)
[2022-04-17] MEDS: OXYBUTYNIN 5 MG TAB PO SCH (09:02)
[2022-04-17] MEDS: PANTOPRAZOLE 40 MG TABEC PO SCH (09:03)
[2022-04-17] MEDS: ESCITALOPRAM 20 MG TAB PO SCH (09:03)
[2022-04-17] MEDS: levETIRAcetam 500 MG TAB PO SCH ×2 (09:03→20:59)
[2022-04-17] MEDS: BENZTROPINE 1 MG TAB PO SCH ×2 (09:03→20:59)
--- NOTE | 2022-04-17 10:30 | NUR ---
PT ATTEMPTED TO GO TO THE RR, BUT INSTEAD DEFECATED/URINATED ON RR FLOOR. PT HYGIENE WAS COMPLETED AND PT WAS ESCORTED BACK TO BED. PT IS RESTING WITH NO S/S OF DISTRESS.
[2022-04-17 11:00] VITALS: BP 150/90
--- NOTE | 2022-04-17 12:25 | NUR ---
DUE MEDICATION ORDERED GIVEN, PT TOLERATED WELL, NO DISTRESS NOTED, WILL CONTINUE TO MONITOR.
[2022-04-17 16:00] VITALS: BP 128/95
--- NOTE | 2022-04-17 16:00 | NUR ---
PT UTILIZED RR WITH ASSISTANCE. GOWN WAS CHANGED DUE TO INCONTINENCE. PT REQUIRED FEEDING ASSISTANCE DUE TO CONSTANT SHAKING RESULTING IN DROPPING SOME OF HIS FOOD.
--- NOTE | 2022-04-17 19:17 | NUR ---
ENDORSED PT TO CENTRIFUGE SEPARATOR OPERATOR NURSE FOR CONTINUOUS OF CARE.
--- NOTE | 2022-04-17 20:00 | NUR ---
RECEIVED BEDSIDE REPORT FROM DAY RN FOR CONTINUITY OF CARE. RECEIVED PATIENT AWAKE,ALERT, BUT NON VERBAL BUT ABLE TO FOLLOW SOME COMMANDS.PATIENT SITTING UP IN BED NOT ON ANY DISTRESS. FALL PRECAUTION IMPLEMENTED. INSTRUCTED NOT TO GET OUT OF BED. PT NEEDED REINFORCEMENT. CALL LIGHT WITHIN REACH. WILL CONTINUE PLAN OF CARE AND OBSERVATION.
[2022-04-17] MEDS: QUEtiapine FUMARATE 100 MG TAB PO SCH (20:59)
--- NOTE | 2022-04-17 22:00 | NUR ---
ADMINISTERED ALL SCHEDULED MEDICATIONS ORDERED. PATIENT TOLERATED IT WELL. NO ADVERSE DRUG REACTION NOTED AND NOT COMPLAIN FROM THE PATIENT.WILL CONTINUE OBSERVATION.
[2022-04-18] VITALS: BP 120/87
--- NOTE | 2022-04-18 | NUR ---
VITAL SIGNS STABLE, AFEBRILE, SATING 95% ON RA. PT NOT IN ANY DISTRESS AND PAIN ASSESSMENT FLACC IS 0. CALL LIGHT WITHIN REACH.
--- NOTE | 2022-04-18 02:00 | NUR ---
PATIENT ASLEEP AT THIS TIME. VISIBLE CHEST RISE AND FALL NOTED. NO SIGN AND SYMPTOMS OF DISTRESS NOTED AT THIS TIME. CALL LIGHT WITHIN REACH. WILL CONTINUE OBSERVATION.
--- NOTE | 2022-04-18 03:31 | NUR ---
PATIENT CALLED AND COMPLAINING THAT SHE FEELS LIKE SUFFOCATING AND ALSO POINTING THAT HER STOMACH FEELS TIGHT. PT SATING 98% ON RA. TRIED TO REPOSITION THE PATIENT AND VERBALIZED OF NO RELIEF. PLACED THE PATIENT ON 2L/NC AND VERBALIZED RELIEF AND STATED THAT THE OXYGEN IS HELPING HER BREATHE BETTER. BP 188/71, HR-93. WILL CONTINUE TO OBSERVE THE PATIENT. Addendum: 04/18/22 at 0502 by Vika Pickens RN RN WRONG PATIENT ENTRY
--- NOTE | 2022-04-18 04:30 | NUR ---
PATIENT WOKE UP AND WALKED OUTSIDE. ESCORTED THE PATIENT BACK TO THE BATHROOM AND BACK TO BED.
--- NOTE | 2022-04-18 06:00 | NUR ---
NO ACUTE EVENT THROUGHOUT THE NIGHT. PATIENT STABLE AND NOT ON ANY DISTRESS AND NO COMPLAIN AT THIS TIME. ALL NEEDS ATTENDED.CALL LIGHT WITHIN REACH. WILL ENDORSE THE PATIENT TO THE ONCOMING NURSE FOR CONTINUITY OF CARE.
[2022-04-18 06:42] LABS: BASOPHILS # (AUTO) 0.1 K/uL (0.00-0.22); BASOPHILS % (AUTO) 0.9 % (0.0-2.0); EOSINOPHILS # (AUTO) 0.5 K/uL (0-0.4); HEMATOCRIT 40.4 % (36-52); HEMOGLOBIN 13.6 g/dL (12.0-18.0); LYMPHOCYTES % (AUTO) 22.8 % (20.5-51.1); MEAN CORPUSCULAR HEMOGLOBIN 32 pg (27-31); MEAN CORPUSCULAR HGB CONC 34 g/dL (33-37); MEAN CORPUSCULAR VOLUME 94.2 fL (80-94); MONOCYTES # (AUTO) 1.6 K/uL (0.8-1.0); MONOCYTES % (AUTO) 18.9 % (1.7-9.3); NEUTROPHILS # (AUTO) 4.4 K/uL (1.8-7.7); NEUTROPHILS % (AUTO) 51.4 % (42.2-75.2); PLATELET COUNT (AUTO) 228 K/uL (140-450); RED BLOOD CELL COUNT(AUTO) 4.29 MIL/uL (4.20-6.10); RED CELL DISTRIBUTION WIDTH 13.5 % (11.6-13.7); WHITE BLOOD COUNT (AUTO) 8.6 K/uL (4.8-10.8)
[2022-04-18 06:53] LABS: ANION GAP 11.8 (8-16); CARBON DIOXIDE 26.9 mmol/L (21-32); CREATININE 0.6 mg/dL (0.6-1.3); POTASSIUM 3.7 mmol/L (3.5-5.1)
--- NOTE | 2022-04-18 07:21 | NUR ---
ENDORSED PATIENT TO DAY RN FOR CONTINUITY OF CARE. PATIENT STABLE. SIGNING OFF.
[2022-04-18 08:00] VITALS: BP 118/89
[2022-04-18] MEDS ORDERED: CARB1TAB39 PO (08:11)
--- NOTE | 2022-04-18 11:08 | NUR ---
DC PLANNING: PATIENT HAS A DC ORDER TO RETURN TO [facility] CALLED KOBI THE ADMIN [phone] AND [phone] LEFT A MESSAGE. CALLED PATIENT'S MOTHER VIDYA [phone] VOICE MAIL FULL UNABLE TO LEAVE MESSAGE. CM CALLED [facility] PRODUCTION SUPPLY EQUIPMENT TENDER [phone] LEFT A MESSAGE. CM TO FOLLOW Addendum: 04/18/22 at 1130 by Radha Crisostomo RN DC PLANNING: RECEIVED A CALL FROM ADMIN AT [facility] SPOKE WITH FANY STATED SHE CAN ARRANGE THE TRANSPORT TO HEAVY EQUIPMENT PLUMBING SUPERVISOR TIME 2 PM NOTIFIED SANGITA NIETO. VISHNU TO FOLLOW
[2022-04-18] MEDS: PANTOPRAZOLE 40 MG TABEC PO SCH (11:18)
[2022-04-18] MEDS: BENZTROPINE 1 MG TAB PO SCH (11:19)
[2022-04-18] MEDS: levETIRAcetam 500 MG TAB PO SCH (11:19)
[2022-04-18] MEDS: CARBIDOPA/LEVODOPA 25/100 MG 1 TAB PO SCH ×2 (11:19→12:38)
[2022-04-18] MEDS: ESCITALOPRAM 20 MG TAB PO SCH (11:20)
[2022-04-18] MEDS: OXYBUTYNIN 5 MG TAB PO SCH (11:20)
[2022-04-18 12:04] VITALS: BP 118/86
[2022-04-18 12:14] VITALS: BP 118/86
== END 2022-04-18 16:49 | disposition home or self-care (01) | DRG 193 ==
LOC: MED 16:41 → MMU 04-15 03:33 → MTU 04-15 09:08 → OBSVTOIN 04-15 13:00
PROVIDERS: ADMIT Family Medicine; ATTEND Family Medicine
DX: J18.9 Pneumonia, unspecified organism (principal); G93.41 Metabolic encephalopathy; E44.1 Mild protein-calorie malnutrition; G91.2 (Idiopathic) normal pressure hydrocephalus; J98.11 Atelectasis; E86.0 Dehydration; R53.1 Weakness; E87.6 Hypokalemia; G40.909 Epilepsy, unspecified, not intractable, without status epilepticus; R29.6 Repeated falls; I67.2 Cerebral atherosclerosis; F79 Unspecified intellectual disabilities; N32.81 Overactive bladder; F41.9 Anxiety disorder, unspecified; K21.9 Gastro-esophageal reflux disease without esophagitis; G24.9 Dystonia, unspecified; Z20.822 Contact with and (suspected) exposure to COVID-19; Z79.899 Other long term (current) drug therapy; Z68.24 Body mass index [BMI] 24.0-24.9, adult
CPT/HCPCS: 36415; 70450; 71045; 80048; 80053; 81003; 82150; 82553; 83036; 83690; 83735; 83880; 84100; 84436; 84439; 84443; 84479; 84484; 85025; 85610; 85730; 87081; 93005; 97110; 97116; 97530; 99285; J2060

== ENCOUNTER 2022-11-03 17:59 | Emergency (ER) | payer OTHER, BC ==
[~2022-11-03] VITALS: Ht 160 cm; Wt 60.8 kg
[~2022-11-03 17:59] MED LIST changes: +BENZ-284 PO; -BENZ2TAB27 PO; +CARB1TAB39 PO; -DIT5 PO; -IMO2 PO; +OXYB5TAB44 PO
[2022-11-03 18:17] VITALS: BP 125/75
--- NOTE | 2022-11-03 22:25 | NUR ---
Patient discharged with v/s stable. Written and verbal after care instructions given and explained. Patient verbalized understanding. Wheel Chair Assisted with by caregiver. All questions addressed prior to discharge. Advised to follow up with PMD.
== END 2022-11-03 22:25 | disposition home or self-care (01) ==
LOC: MED 17:59
DX: S00.83XA Contusion of other part of head, initial encounter (principal); S80.211A Abrasion, right knee, initial encounter; R25.1 Tremor, unspecified; K21.9 Gastro-esophageal reflux disease without esophagitis; F03.90 Unspecified dementia, unspecified severity, without behavioral disturbance, psychotic disturbance, mood disturbance, and anxiety; Z86.69 Personal history of other diseases of the nervous system and sense organs; Z79.899 Other long term (current) drug therapy; Z79.1 Long term (current) use of non-steroidal anti-inflammatories (NSAID); W18.39XA Other fall on same level, initial encounter; Y92.89 Other specified places as the place of occurrence of the external cause; Y93.89 Activity, other specified; Y99.8 Other external cause status
CPT/HCPCS: 70450; 73562; 90471; 90715; 99285

== ENCOUNTER 2022-12-14 14:22 | Emergency (ER) | payer MEDICARE, MEDICAID ==
[~2022-12-14] VITALS: Ht 172.7 cm; Wt 49.9 kg
[2022-12-14 14:33] VITALS: BP 109/74
--- NOTE | 2022-12-14 14:38 | NUR ---
BIBA BLS TO ER BED 0 Addendum: 12/14/22 at 1439 by MEDDM BIBA BLS TO ER BED 9
--- NOTE | 2022-12-14 15:10 | NUR ---
MOVED TO ER BED 10
--- NOTE | 2022-12-14 16:19 | NUR ---
PT GOT OUT OF BED, AMBULATED X 2, ASSISTED BACK TO BED, FOLLOWS DIRECTIONS
[2022-12-14 17:48] VITALS: BP 109/74
--- NOTE | 2022-12-14 17:48 | NUR ---
Patient discharged with v/s stable. Written and verbal after care instructions given and explained. Patient verbalized understanding. Ambulatory with to car. All questions addressed prior to discharge. Advised to follow up with PMD.
== END 2022-12-14 17:48 | disposition home or self-care (01) ==
LOC: MED 14:22
DX: S01.81XA Laceration without foreign body of other part of head, initial encounter (principal); K21.9 Gastro-esophageal reflux disease without esophagitis; Z79.899 Other long term (current) drug therapy; W18.30XA Fall on same level, unspecified, initial encounter; Y93.89 Activity, other specified; Y92.89 Other specified places as the place of occurrence of the external cause; Y99.8 Other external cause status
CPT/HCPCS: 70450; 70486; 72126; 90715; 99284

== ENCOUNTER 2022-12-23 09:05 | Emergency (ER) | payer MEDICARE, MEDICAID ==
[~2022-12-23] VITALS: Ht 175.3 cm; Wt 56.7 kg
[2022-12-23 09:22] VITALS: BP 112/70
[2022-12-23 10:37] VITALS: BP 112/70
--- NOTE | 2022-12-23 10:38 | NUR ---
Patient discharged with v/s stable. Written and verbal after care instructions given and explained to manager document Gracy. manager document Gracy verbalized understanding. Wheel Chair Assisted with by caregiver. All questions addressed prior to discharge. Advised to follow up with PMD.
== END 2022-12-23 10:37 | disposition home or self-care (01) ==
LOC: MED 09:05
DX: S01.81XD Laceration without foreign body of other part of head, subsequent encounter (principal); K21.9 Gastro-esophageal reflux disease without esophagitis; Z79.899 Other long term (current) drug therapy; X58.XXXD Exposure to other specified factors, subsequent encounter
CPT/HCPCS: 99281